=== PATIENT | female | born 1970 | race Caucasian/White ===

== ENCOUNTER 2018-02-27 11:39 | Outpatient (REF) | payer BC, SELFPAY ==
--- NOTE | 2018-02-27 11:20 | PAPFT_PTH ---
PATIENT: Masha Munoz LOC: [facility] U#:[id number] AGE/SX: 47/F ROOM: RE02/27/[address]: Kassi Yoo : 1970 BED: DIS: 02/27/2018 SPEC #: [id number] RECD: 02/27/18 13:01 STATUS: ALTAGRACIA RELori #: [id number] MARIA SUBM DR: Kassi Yoo DEPT: [facility] Cytology RECD BY: Caroline Antoine ENTERED: 02/27/18 13:02 SP TYPE: PAPFT DARRENHR DR: Ashlee Bruner Tissues: 1 - CX/ENDOCX FOR PAP SMEARS Procedures: PAP THIN PREP/UVM Screening HPV DNA PROBE Comments: [id number]
== END 2018-02-27 11:59 ==
LOC: LBN 11:39
PROVIDERS: PCP Nurse Practitioner Family; Visit Provider Obstetrics & Gynecology Gynecology
DX: Z12.4 Encounter for screening for malignant neoplasm of cervix (principal); Z11.51 Encounter for screening for human papillomavirus (HPV)
CPT/HCPCS: 88142; 87624

== ENCOUNTER 2018-02-27 12:11 | Outpatient (CLI) | payer BC, SELFPAY ==
[2018-02-27 13:57] LABS: Cholesterol 130 mg/dL (50-200); Glucose 94 mg/dL (70-100); HDL Cholesterol 48 mg/dL (40-60); LDL CHOLESTEROL 73 mg/dL (<100); Triglyceride 53 mg/dL (30-150)
[2018-02-27 14:12] LABS: Hemoglobin A1C 5.2 % (4.5-6.2)
== END 2018-02-27 12:31 ==
PROVIDERS: PCP Nurse Practitioner Family; Visit Provider Obstetrics & Gynecology Gynecology
DX: Z00.00 Encounter for general adult medical examination without abnormal findings (principal); Z13.1 Encounter for screening for diabetes mellitus; Z13.220 Encounter for screening for lipoid disorders
CPT/HCPCS: 36415; 80061; 82947; 83721; 83036

== ENCOUNTER 2019-04-22 02:21 | Outpatient (CLI) | payer OTHER, SELFPAY ==
--- NOTE | 2019-04-22 08:57 | PFT_ITS ---
PULMONARY FUNCTION TEST REPORT DATE OF SERVICE: April 22, 2019 REQUESTING PROVIDER: Nahed Reed M.D. Spirometry shows no evidence of obstructive airways disease. No bronchodilator testing was carried out. Lung volumes show no evidence of restriction. Diffusion capacity normal. Airways resistance normal. IMPRESSION: Normal pulmonary function study. No bronchodilator testing was carried out. Clinical correlation recommended. GINA/stephanie D/
[2019-04-22] MEDS: Inhaler, Assist Device 1 EACH MC (14:59)
[2019-04-22] MEDS: Methacholine 100 MG VIAL IH (14:59)
[2019-04-22] MEDS: Albuterol HFA 18 GM 200 PUFF INH IH (15:00)
== END 2019-04-22 02:41 ==
PROVIDERS: PCP Nurse Practitioner Family; Visit Provider Family Medicine
DX: R06.02 Shortness of breath (principal); R07.9 Chest pain, unspecified
CPT/HCPCS: 94060; 94150; 94726; 94729; 95070; 94010; J7674

== ENCOUNTER 2019-06-04 08:11 | Day surgery (SDC) | payer OTHER, SELFPAY ==
[2019-06-04 08:21] VITALS: BP 114/80; PULSE 61; RESP 16; TEMP 36.4; O2SAT 98
[2019-06-04] MEDS: Lactated Ringers 1,000 ML 80 ML IV (08:45)
--- NOTE | 2019-06-04 09:39 | W.COLOREPORT ---
Date of service: 06/04/19 Time of Service: 09:39 Colonoscopy Report Date of procedure: 06/04/19 Pre-op diagnosis general: hx of polyps Post-op diagnosis procedure note: same Procedure: CE and polypectomy- cold Surgeon: Shreya Cruz Anesthesia proc note operative: GETA Estimated blood loss (mL): 1 Pathology: other Complications: None Disposition: same day Prep: Miralax/Dulcolax Retraction Time: 10 mins Procedure Description: After informed consent was obtained the patient was taken to the procedure room and placed in a left decubitous position. Monitors were applied and a time out was done. The patients name, date of , procedure, allergies to medications and metal in their body was reviewed. The patient was then sedated. Once sedated and comfortable a rectal exam was done. External exam was normal- minimal residual tags. Erythema from prepping. Internal exam revealed a normal sphincter tone and no palpable masses. The scope was then introduced and retrofelexed. No internal hemorrhoids were identified. The scope was then advanced to the cecum w/out difficulty. The TI and appendiceal orifice were identified. The prep was good. The scope was then slowly retracted over 10 minutes back into the rectum. Polyps were removed at 40c,/sigmoid and rectum and removed w/ a cold biter. No AVM's or diverticula. The scope was removed and the patient was woken up and taken back to Same day surgery in stable condition. The patient tolerated the procedure well and there were no immediate complications. Follow up: The patient should follow up in 5-10 yrs- path pd years unless they develop changes in bowel habits or other new gastrointestinal complaints.
--- NOTE | 2019-06-04 10:12 | BOWEL_PTH ---
PATIENT: Masha Munoz LOC: [facility] U#:[id number] AGE/SX: 48/F ROOM: RE06/04/[address]: Shreya Cruz : 1970 BED: DIS: 06/04/2019 SPEC #: [id number] RECD: 06/04/19 12:36 STATUS: ALTAGRACIA REQ #: [id number] MARIA SUBM DR: Shreya Cruz DEPT: Surgical Specimen RECD BY: Caroline Antoine ENTERED: 06/04/19 12:37 SP TYPE: Bowel OTHR DR: Ashlee Bruner Tissues: 1 - BIOPSY BOWEL 2 - BIOPSY BOWEL Procedures: GROSS AND MICRO LEVEL 4 Comments: [id number]
--- NOTE | 2019-06-04 10:25 | W.PM.DSUDISC ---
Discharge Plan Disposition Patient Disposition: HOME Condition: Good Discharge Details Reason For Visit: SCREENING Attending Provider: Shreya Cruz Primary Care Provider: Ashlee Bruner Home Meds and New Rx's Prescriptions: No Action Daily Multiple 1 EACH tablet 1 tab-cap PO DAILY RF: 0 levothyroxine 50 mcg tablet 50 mcg PO DAILY Qty: 60 RF: 6 Discharge Instructions Additional Instructions: Findings: x2 small polyps. Will send a letter in 2-3 weeks as to the type of polyps and when to repeat scope Follow up: pending path report Please call if you develop: fevers >101.5 Nausea or Vomiting Abdominal pain that is not transient DAY SURGERY UNIT POST COLONOSCOPY INSTRUCTIONS 1. Because there will be medication in your system for the next 24 hours, you may feel a little sleepy. Your coordination will be affected. Therefore: a. Do not drive or operate dangerous equipment for 24 hours. b. Do not drink alcohol beverages for 24 hours (not even beer). c. Plan to go home and rest for the day. 2. Generally there are no restrictions on your activity after a day or so has gone by, but you may feel a bit fatigued for a few days. 3 After you arrive home you may have a light meal and return to a normal diet as you can tolerate it without feeling sick to your stomach. 4. After surgery, you may feel pain or discomfort. This should be only transient, but if it persists please contact your doctor. 5. If there are any questions regarding the findings of your procedure, please feel free to contact your doctor. 6. If you are unable to contact your doctor with a problem, contact the hospital at [phone]. 7. Continue all your regular medications unless directed otherwise. I understand the above instructions and have no questions. Signature of Patient or Responsible Adult Escort Date/Time Name of Responsible Adult Escort Signature of Nurse Date/Time Activity:: no lifting over 20 #'s or strenuous activity x24 hrs Diet:: small light meals x 24 hrs Discharge Orders Discharge Orders: Discharge Order (Routine); Ordered 06/04/19 Ordered By: Shreya Cruz DS: Diagnosis Discharge Diagnosis (1) Colorectal polyps: Status: Acute
[2019-06-04 10:54] VITALS: BP 128/84; PULSE 53; RESP 16; TEMP 36.3; O2SAT 99
== END 2019-06-04 11:12 | disposition home or self-care (01) ==
PROVIDERS: PCP Nurse Practitioner Family; Visit Provider Surgery
PROC: 0DJD8ZZ Inspection of Lower Intestinal Tract, Via Natural or Artificial Opening Endoscopic (ICD-10-PCS; CPT 45378; principal; 2019-06-04 09:00)
DX: Z12.11 Encounter for screening for malignant neoplasm of colon (principal); K63.5 Polyp of colon; K62.1 Rectal polyp
CPT/HCPCS: 45380; 88305; J2001

== ENCOUNTER 2019-08-27 02:48 | Outpatient (CLI) | payer OTHER, SELFPAY ==
--- NOTE | 2019-08-27 13:19 | DI.MAMMO_ITS ---
EXAM: MAMMO SCREENING CLINICAL HISTORY: screening,Z12.39 TECHNIQUE: Mammograms were interpreted according to the usual protocol including computer analysis w [employer] CAD system, tomosynthesis and C-view imaging. COMPARISON: 2017 FINDINGS: The breasts are composed of heterogeneously dense fibroglandular densities, Breast Density category C . No suspicious masses or suspicious microcalcifications are seen. No skin thickening or abnormal axillary lymph nodes are seen. There has been no significant change from prior exams. IMPRESSION: BI-RADS Category 1: Negative mammogram. Yearly screening mammography is recommended. Breast density category C, heterogeneously dense tissue which decreases the sensitivity of the mammog ralph. The mammogram demonstrates the patient's breast tissue is dense. Dense breast tissue is very common a nd is not abnormal but dense breast tissue can make it harder to find cancer on a mammogram. Also, de nse breast tissue may increase breast cancer risk. This information about the result of the mammogram report was provided to the patient to raise their awareness. Use this report when you speak with the patient about their risks for breast cancer, which includes their family history. At that time, you may recommend additional screening tests (Ultrasound or MRI) as they might be useful based on their r isk. A negative radiographic report should not delay biopsy if a dominant or clinically suspicious mass is present. Up to ten percent of cancers are not identified on mammography. A negative report may reinforce clinical impression. Adenosis and dense breasts may obscure an underlying neoplasm. False positive reports average 6 to 10%.
== END 2019-08-27 03:08 ==
PROVIDERS: PCP Nurse Practitioner Family; Visit Provider Obstetrics & Gynecology Gynecology
DX: Z12.31 Encounter for screening mammogram for malignant neoplasm of breast (principal)
CPT/HCPCS: 77063; 77067

== ENCOUNTER 2020-01-21 10:21 | Outpatient (CLI) | payer OTHER, SELFPAY ==
--- NOTE | 2020-01-21 09:45 | DI.RAD_ITS ---
EXAM: XR KNEE RT 3V AP,LAT,HASEEB INDICATION: TKA preop. COMPARISON: CR XR STANDING ALIGNMENT from 01/21/2020 TECHNIQUE: 2D digital imaging was performed. FINDINGS: No prior comparison exams available. There is moderate to severe narrowing of the medial femoral tibial joint space of the right knee, per iarticular sclerosis and spurring. There has been a previous ACL repair. There is varus angulation at the right knee. Degenerative changes are also seen at the patellofemoral joint, greater medially. The patellofemoral joint space is well maintained. The left knee and bilateral hips and ankles are unremarkable. There is a overall leg length discrepa ncy at the level of the femoral heads of approximately 1 cm, with the left femoral head projecting merchant perior to the right. IMPRESSION: Severe degenerative changes of the medial femoral tibial joint space of the right knee. 1 cm leg le ngth discrepancy. DATA REPOSITORY: RADIATION DOSE DELIVERED:
== END 2020-01-21 10:41 ==
PROVIDERS: PCP Nurse Practitioner Family; Referring Provider Nurse Practitioner Family; Visit Provider Physician Assistant Surgical
DX: M17.11 Unilateral primary osteoarthritis, right knee (principal); M21.751 Unequal limb length (acquired), right femur
CPT/HCPCS: 73562; 77073

== ENCOUNTER 2020-02-12 01:23 | Outpatient (CLI) | payer OTHER, SELFPAY ==
[2020-02-14 09:59] LABS: SARS-CoV-2 RNA Not Detected (NotDetected); SARS-CoV-2 RNA Source Nasal/Nares
== END 2020-02-12 01:43 ==
PROVIDERS: PCP Nurse Practitioner Family; Visit Provider Student in an Organized Health Care Education/Training Program
DX: Z11.59 Encounter for screening for other viral diseases (principal); Z01.818 Encounter for other preprocedural examination
CPT/HCPCS: U0003

== ENCOUNTER 2020-02-12 01:26 | Outpatient (CLI) | payer OTHER, SELFPAY ==
[2020-02-12 10:51] LABS: HCT 38.7 % (36.0-46.0); HGB 13.1 g/dL (11.2-15.7); MCH 32.4 pg (27.0-33.0); MCHC 33.9 % (32.0-36.0); MCV 95.8 fL (80-95); MPV 10.5 fL (8.0-11.0); Platelet Count 225 10^3/uL (130-400); RBC 4.04 10^6/uL (3.93-5.22); RDW 12.9 % (11.7-14.6); RDW-SD 45.9 fL; WBC 4.61 10^3/uL (4.4-10.8)
[2020-02-12 12:20] LABS: Anion Gap 7.4 mmol/L (3-11); BUN 15 mg/dL (7-18); CO2 29.6 mmol/L (21.0-32.0); CREATININE 0.75 mg/dL (0.55-1.02); Calcium 9.6 mg/dL (8.5-10.1); Chloride 104 mmol/L (98-107); Glucose 87 mg/dL (74-106); Potassium 4.7 mmol/L (3.5-5.1); Sodium 141 mmol/L (136-145)
== END 2020-02-12 01:46 ==
PROVIDERS: PCP Nurse Practitioner Family; Visit Provider Student in an Organized Health Care Education/Training Program
DX: M25.561 Pain in right knee (principal); M17.11 Unilateral primary osteoarthritis, right knee; Z01.812 Encounter for preprocedural laboratory examination
CPT/HCPCS: 36415; 80048; 85027

== ENCOUNTER 2020-02-16 07:32 | Observation (INO) | payer OTHER, SELFPAY ==
[2020-02-16] VITALS (10 sets, daily range): BP systolic 83–129; BP diastolic 42–89; PULSE 44–66; RESP 12–24; TEMP 36.1–36.4; O2SAT 92–100
--- NOTE | 2020-02-16 07:34 | DSE_ITS ---
Documented by User: Shreya Rubioxon 02/16/20 07:40 DS: Diagnosis Discharge Diagnosis (1) Osteoarthritis of right knee: Status: Chronic Discharge Plan Disposition Patient Disposition: HOME Condition: Good Discharge Details Reason For Visit: R KNEE DJD Admit Date/Time: 02/16/20 08:04 Admit Provider: Asaf Ervin Attending Provider: Asaf Ervin Primary Care Provider: Ashlee Bruner [facility] Course Hospital Course: Patient was admitted to the day surgery unit following the procedure. The surgery was tolerated well without any notable medical, surgical, or anesthetic complications. Mobilization began post-operatively. They were voiding spontaneously. Vitals were stable. Physical therapy worked with the patient and was cleared for discharge home. No acute medical issues. Pain was controlled on oral regimen. Home Meds and New Rx's Prescriptions: New acetaminophen 500 mg tablet 500 mg PO Q6H PRN (Reason: pain) Qty: 60 RF: 2 aspirin 81 mg tablet,delayed release (DR/EC) 81 mg PO BID 30 Days Qty: 60 RF: 0 celecoxib [Celebrex] 200 mg capsule 200 mg PO BID Qty: 60 RF: 0 oxycodone 5 mg tablet 2.5 - 5 mg PO Q4H PRN (Reason: severe post-operative pain) Qty: 18 RF: 0 Continued Daily Multiple 1 EACH tablet 1 tab-cap PO DAILY RF: 0 levothyroxine 50 mcg tablet 50 mcg PO DAILY Qty: 60 RF: 6 Discharge Instructions Additional Instructions: Total Knee Discharge Instructions Activity: The most important activity is to walk. You should try to take short walks a few times a day. It is important that when resting you work on keeping the knee straight. Avoid putting a pillow behind the knee as this will encourage flexion. Work on range of motion exercises as provided by Physical Therapy. - Start outpatient physical therapy within 2 weeks. - You should wear the SHIV hose on both legs for 2 weeks. Dressing: Keep the surgical dressing in place for at least one week. After the first week it may be removed and replace with light gauze and tape or nothing. It may get wet after 3 days but avoid soaking the dressing. If it gets wet, just lightly pat dry. Medications: - You should take Tylenol and anti-inflammatory Celebrex as your primary pain control medications. If the Celebrex is too expensive or not covered, please call the office for another alternative (Advil/Ibuprofen or Naproxen/Aleve) - You have been prescribed a stronger pain medication Oxycodone for breakthrough pain, take as needed as prescribed. - You have also been prescribed a stomach acid reduction agent Pantoprozole to help reduce stomach acid and reflux. - You will be taking Aspirin 81mg twice a day for DVT prevention unless instructed otherwise. - If you have constipation you should take Colace (which was prescribed) or Miralax (which you may purchase [id number]). It takes most people 3-4 days to have a bowel movement. Follow-up: 2 weeks If you have any acute concerns or questions, please do not hesitate to contact the office at [phone]. You may contact Dr. Ervin with any questions after hours through the hospital at [phone] or on his cell phone at [phone]. Referrals: Asaf Ervin MD [ [facility] STAFF PHYSICIAN] - Activity:: Activity as Tolerated Equipment/Supplies:: Walker Diet:: As Tolerated Discharge Orders Discharge Orders: Discharge Order (Routine); Ordered 02/16/20 Ordered By: Asaf Ervin DS: Data Vitals/I&O Vitals and I&O: Vital Signs Respiratory Depth Normal 02/15/20 10:34 Intake & Output 02/15/20 02/15/20 02/16/20 11:59 23:59 11:59 Weight 77.564 kg [facility] Medical History Colorectal polyps Hypothyroidism (acquired) Intramural leiomyoma of uterus (06/07/16) x4; largest [id number] Menopausal symptoms (02/04/17) Occasional Vasomotor symptoms. Vaginal dryness treated with [id number] vaginal lubricant. Surgical History History of section x2 History of endometrial ablation Hx of anterior cruciate ligament surgery R replacement Family History Other Diabetes Thyroid disease Social History Smoking/Tobacco Use Status: Never Second Hand Exposure: No Smoking risk assessment performed?: Yes Alcohol Intake: current Alcohol Intake frequency: 0-2 drinks per day Alcohol type: beer and wine Drug use: Never Substance use type: does not use Household members: spouse Number of Children: 2 current occupation: [employer]. Now works at [employer] Sexually active: Yes Current gender identity: female Seatbelt use: always Do you feel safe at home: Yes Do you feel safe in your relationship?: Yes Additional Social history: 03/2019. 2 daughters: Yohana 29yo, Giulia 22yo Female Reproductive History Menstrual Duration of menses: 6-7 days (Infrequent menses. Dysmenorrhea) control method: none History History 2 Para Hx # Term Pregnancies 2 Multiple births Hx # Pregnancies Ectopic pregnancies AB induced Hx Number of Living Children AB spontaneous Documented by User: Asaf Ervin MD 02/16/20 15:35 Date of service: 02/16/20 Time of Service: 15:31 Discharge Plan Disposition Patient Disposition: HOME Condition: Good Discharge Details Reason For Visit: R KNEE DJD Admit Date/Time: 02/16/20 08:04 Admit Provider: Asaf Ervin Attending Provider: Asaf Ervin Primary Care Provider: Ashlee Bruner Hospital Course Hospital Course: Patient was admitted to the day surgery unit following the procedure. The surgery was tolerated well without any notable medical, surgical, or anesthetic complications. Mobilization began post-operatively. They were voiding spontaneously. Vitals were stable. Physical therapy worked with the patient and was cleared for discharge home. No acute medical issues. Pain was controlled on oral regimen. Home Meds and New Rx's Prescriptions: New acetaminophen 500 mg tablet 500 mg PO Q6H PRN (Reason: pain) Qty: 60 RF: 2 aspirin 81 mg tablet,delayed release (DR/EC) 81 mg PO BID 30 Days Qty: 60 RF: 0 celecoxib [Celebrex] 200 mg capsule 200 mg PO BID Qty: 60 RF: 0 oxycodone 5 mg tablet 2.5 - 5 mg PO Q4H PRN (Reason: severe post-operative pain) Qty: 18 RF: 0 Continued Daily Multiple 1 EACH tablet 1 tab-cap PO DAILY RF: 0 levothyroxine 50 mcg tablet 50 mcg PO DAILY Qty: 60 RF: 6 Discharge Instructions Additional Instructions: Total Knee Discharge Instructions Activity: The most important activity is to walk. You should try to take short walks a few times a day. It is important that when resting you work on keeping the knee straight. Avoid putting a pillow behind the knee as this will encourage flexion. Work on range of motion exercises as provided by Physical Therapy. - Start outpatient physical therapy within 2 weeks. - You should wear the SHIV hose on both legs for 2 weeks. Dressing: Keep the surgical dressing in place for at least one week. After the first week it may be removed and replace with light gauze and tape or nothing. It may get wet after 3 days but avoid soaking the dressing. If it gets wet, just lightly pat dry. Medications: - You should take Tylenol and anti-inflammatory Celebrex as your primary pain control medications. If the Celebrex is too expensive or not covered, please call the office for another alternative (Advil/Ibuprofen or Naproxen/Aleve) - You have been prescribed a stronger pain medication Oxycodone for breakthrough pain, take as needed as prescribed. - You have also been prescribed a stomach acid reduction agent Pantoprozole to help reduce stomach acid and reflux. - You will be taking Aspirin 81mg twice a day for DVT prevention unless instr ucted otherwise. - If you have constipation you should take Colace (which was prescribed) or Miralax (which you may purchase [id number]). It takes most people 3-4 days to have a bowel movement. Follow-up: 2 weeks If you have any acute concerns or questions, please do not hesitate to contact the office at [phone]. You may contact Dr. Ervin with any questions after hours through the hospital at [phone] or on his cell phone at [phone]. Referrals: Asaf Ervin MD [ [facility] STAFF PHYSICIAN] - Activity:: Activity as Tolerated Equipment/Supplies:: Walker Diet:: As Tolerated Discharge Orders Discharge Orders: Discharge Order (Routine); Ordered 02/16/20 Ordered By: Asaf Ervin DS: Summary Status at Discharge Functional status at discharge: uses cane/walker Overall status at discharge: patient is progressing back to baseline Mental Status: mental status grossly normal Speech and Movement: speech and movement normal Mood: congruent mood Affect: normal affect Exam Psych Mental Status: mental status grossly normal Speech and Movement: speech and movement normal Mood: congruent mood Affect: normal affect [facility] Medical History Colorectal polyps Hypothyroidism (acquired) Intramural leiomyoma of uterus (06/07/16) x4; largest [id number] Menopausal symptoms (02/04/17) Occasional Vasomotor symptoms. Vaginal dryness treated with zsum-tzy-izgrtld vaginal lubricant. Surgical History History of section x2 History of endometrial ablation Hx of anterior cruciate ligament surgery R replacement Family History Other Diabetes Thyroid disease Social History Smoking/Tobacco Use Status: Never Second Hand Exposure: No Smoking risk assessment performed?: Yes Alcohol Intake: current Alcohol Intake frequency: 0-2 drinks per day Alcohol type: beer and wine Drug use: Never Substance use type: does not use Household members: spouse Number of Children: 2 current occupation: [employer]. Now works at [employer] Sexually active: Yes Current gender identity: female Seatbelt use: always Do you feel safe at home: Yes Do you feel safe in your relationship?: Yes Additional Social history: 03/2019. 2 daughters: Yohana 29yo, Giulia 22yo History History 2 Para Hx # Term Pregnancies 2 Multiple births Hx # Pregnancies Ectopic pregnancies AB induced Hx Number of Living Children AB spontaneous
[2020-02-16] MEDS: Gabapentin 300 MG CAP PO (08:45)
[2020-02-16] MEDS: Acetaminophen 500 MG TAB 1000 MG PO ×2 (08:45→15:42)
[2020-02-16] MEDS: Celecoxib 200 MG CAP 400 MG PO (08:46)
[2020-02-16] MEDS: Lactated Ringers 1,000 ML 80 ML IV ×2 (08:55→13:40)
[2020-02-16] MEDS: ceFAZolin 2 GM/50 ML BAG IVPB (10:23)
[2020-02-16] MEDS: Ketorolac 30 MG/ML VIAL (10:53)
[2020-02-16] MEDS: Bupivacaine 0.25% Pres-Free 30 ML VIAL (10:53)
[2020-02-16] MEDS: Normal Saline 20 ML VIAL (10:54)
[2020-02-16] MEDS: fentaNYL 100 MCG/2 ML VIAL IVP ×2 (12:20→12:47)
[2020-02-16] MEDS: HYDROmorphone 2 MG/ML VIAL 0.5 MG IVP (13:38)
[2020-02-16] MEDS: Normal Saline Flush 10 ML SYR IV (13:39)
[2020-02-16] MEDS: ceFAZolin 1 GM/50 ML BAG IVPB (13:40)
--- NOTE | 2020-02-16 14:41 | IN_ITS ---
Date of service: 02/16/20 Time of Service: 14:41 PT Notes Visit Reasons: R KNEE DJD Physical Therapy Inpatient Initial Evaluation Date: 02/16/2020 Referring Doctor: MAR Hart PT Orders: PT CONSULT: Status post Ortho surgery Precautions: Fall. Standard. Patient Profile/Admitting Diagnosis: Masha is a 49-year-old female with degenerative joint disease of the right knee and is status post right total knee arthroplasty on postop day 0. PMHX: Medical History (Updated 02/09/20 @ 13:04 by Shreya Quick) Colorectal polyps Hypothyroidism (acquired) Intramural leiomyoma of uterus (06/07/16) x4; largest [id number] Menopausal symptoms (02/04/17) Occasional Vasomotor symptoms. Vaginal dryness treated with [id number] vaginal lubricant. Surgical History History of section x2 History of endometrial ablation Hx of anterior cruciate ligament surgery R replacement Social History/Home Situation: Lives with in a private home with 4 steps to enter and bilateral rails that are far apart. Independent with all aspects of ADLs prior to surgery. No falls in the past 12 months. Equipment Owned/DME: Bilateral axillary crutches Subjective: Agreeable to PT consult. Reports pain in the right knee at 4?5/10. Complained of hot flashes during stair ascent but was able to complete descent after about 5 minutes of seated rest on the step. Objective: General Observation: CAYLA wraps to right LE. Cryocuff to right knee. Mental Status: Alert and oriented X 4 Pain: 4?5/10 in the right knee ROM: Right Upper Extremity: Shoulder Flexion WFL. Shoulder abduction WFL. Elbow flexion WFL. Wrist flexion WFL. Opening and closing of hand WFL. Left Upper Extremity: Shoulder Flexion WFL. Shoulder abduction WFL. Elbow flexion WFL. Wrist flexion WFL. Opening and closing of hand WFL. Right Lower Extremity: Hip flexion WFL. Hip abduction WFL. Knee flexion allows about 10 degrees to 90 degrees. Knee extension -10 degrees. Ankle dorsiflexion WFL. Ankle plantarflexion WFL. Left Lower Extremity: Hip flexion WFL. Hip abduction WFL. Knee flexion WFL. Ankle dorsiflexion WFL. Ankle plantarflexion WFL. Strength: Right Upper Extremity: Shoulder flexors 5/5. Shoulder abductors 5/5. Elbow flexors 5/5. Elbow extensors 5/5. Occasional Caregiver strong. Left Upper Extremity: Shoulder flexors 5/5. Shoulder abductors 5/5. Elbow flexors 5/5. Elbow extensors 5/5. Occasional Caregiver strong. Right Lower Extremity: Hip flexors 4/5. Hip abductors 4/5. Knee flexors 3-/5. Knee extensors 3-/5. Ankle dorsiflexors 5/5. Ankle plantarflexors 5/5. Left Lower Extremity:Hip flexors 5/5. Hip abductors 5/5. Knee flexors 5/5. Knee extensors 5/5. Ankle dorsiflexors 5/5. Ankle plantarflexors 5/5. Sensation: Numb on bilateral gluteal areas. Intact as to pain and pressure on bilateral lower extremities. Bed Mobility/Transfers: Rolling supervision Supine to sit supervision Sit to supine supervision Sit to stand contact-guard assist Stand to sit contact-guard assist Bed to chair contact-guard assist Chair to bed contact-guard assist Gait: 50 feet using bilateral axillary crutches with contact-guard assist using 3-point gait pattern. Up and down 8 x 4-inch steps using contact guard assist with step over step pattern while using one rail and crutch on the other side. Masha had a an episode of hot flashes, her lips turned pale, and requested to sit down. She was instructed to sit down on the steps safely to rest and nurse placed a cold pack to her posterior neck and a cold wash cloth on her forehead. After about 5 minutes, patient was able to complete stair descent using same AD and rail. THERA EX: Education and instruction on seated exercise performance consisting of bilateral quadriceps setting, bilateral gluteal setting, and ankle DF/PF exercises to be done every hour x 10-15 reps. Balance: Static Sitting: Normal Dynamic Sitting: Normal Static Standing: Fair Dynamic Standing: Fair Special Tests: Mobility Limitations Standardized Measure [facility] AM-PAC 6 clicks Basic Mobility Inpatient Short Form: Raw Score: 20 CMS Score: 36% deficit Informed Consent/Education: Patient instructed in purpose of PT consult and plan of care. Assessment: Masha demonstrates functional mobility decline requiring the use of bilateral axillary crutches for all mobility ADL performance, difficulty with walking, balance impairment, and increased risk for falls due to postoperative status. She will benefit from outpatient physical therapy services 2 weeks postop in order to facilitate return to premorbid independent level. Patient presents with clinical signs and symptoms consistent with current/admitting diagnoses that have resulted to mobility limitations, gait instability, generalized weakness, and impairment of motor control as demonstrated by the following impairment level findings: 1. Decreased strength to right knee major muscle groups 2. Impaired standing balance 3. Impaired activity tolerance 4. Limitation of joint range of motion in right knee Impairments are contributing to the following functional limitations: 1. Inability to safely ambulate without assistive device 2. Increase completion time for mobility ADL performance 3. Increased fall risk 4. Inability to negotiate steps alone safely Patient is assessed as a [id number] moderate complexity based on the following: History: 49-year-old female with impairment level findings, functional limitations, and past medical history as indicated above Examination: Demonstrable impairment in strength, balance, and mobility level with underlying impairments and functional limitations as documented above Presentation:Evolving Decision Makin moderate complexity Goals: N/A. PT eval and 1 treatment session only for education and training on the use of bilateral axillary crutches for all mobility ADL performance including stair negotiation technique and on seated home exercise program. Plan of Care/Treatment Plan: N/A. PT eval and 1 treatment session only. DISCHARGE RECOMMENDATIONS: Home when medically cleared by orthopedic surgeon. Outpatient PT services in 2 weeks to facilitate return to premorbid independent level. TREATMENT CODE/TIME: 38462 x 25 minutes, 01508 x 17 minutes beginning at 14:41 PM. Thank you for the opportunity to participate in the care of this patient. Latricia Ospina PT, DPT, CLT [facility] [place], [place]
--- NOTE | 2020-02-16 18:53 | W.PM.OP ---
Date of service: 02/16/20 Time of Service: 12:02 Operative Note Operative Note DATE OF PROCEDURE: 02/16/20 PRE-OP DIAGNOSIS: Right Knee Osteoarthritis POST-OP DIAGNOSIS: same PROCEDURE: Right Total Knee Replacement SURGEON: Asaf Ervin POLYSOMNOGRAPHIC TECH: Shreya Quick ANESTHESIA: regional and spinal ESTIMATED BLOOD LOSS: 200 PATHOLOGY: none sent TOURNIQUET TIME: 0 COMPLICATIONS: None Patient was transported to: PACU Patient's condition: stable Implants: 1. Depuy Attune Cementless Cruciate Retaining Femoral Component, Size 6 2. Depuy Attune Cementless Rotating Platform Tibial Component, Size 5 3. Depuy Attune 6 x 5 mm CR/RP Poly 4. Depuy Attune Patellar Component, Size 35 Indications: I have seen Masha in clinic for symptoms of knee arthritis, confirmed with radiographic findings. She has exhausted nonoperative methods and was having significant limitations in daily function and desired better function and less pain. I discussed the technical details of a knee replacement. I explained the risks of the procedure to include, but not limited to, bleeding, infection, pain, stiffness, fracture, damage to nerves and vessels, damage to muscles and tendons, loosening, need for repeat procedure, blood clot and cardiopulmonary demise. Despite these risks, aMsha elected to proceed. Findings: There was significant signs of arthritis throughout the knee with notable tibial varus but also disease processes in the lateral femur and patellofemoral joint. Procedure Description: Masha was greeted in the preoperative holding area where the correct side was identified and marked. The consent was reviewed with the patient and signed. The history and physical was updated. All questions were answered. Preoperative medications were administered: Acetaminophen 1000mg, Celebrex 400mg, and Gabapentin 300mg. An adductor canal block was then administered by the anesthesia team in the PACU. She was taken back to the operating room. A spinal anesthestic was then administered. The patient was placed into the supine position on the operating room table. A nonsterile tourniquet was placed high onto the leg but only used for cementing. Posts were placed for positioning during the procedure. All bony prominences were well padded. Prophylactic antibiotics in the form of cefazolin were administered. 1g of Tranxemic Acid was given intravenously within 30 minutes of incision. The right leg was then prepped with Chloraprep and draped in a standard fashion with impervious stockinette. A second prep with Chloraprep was performed prior to application of Iodine impregnated skin protection. A timeout to confirm correct identity, side and site, procedure, allergies, anesthesia, and medical concerns was performed. With the knee in some flexion, a midline incision was made overlying the knee. Full thickness skin flaps were raised once the extensor mechanism was encountered. These were raised medially and laterally. Any bleeding was controlled with electrocautery. Once the extensor mechanism was fully exposed, a medial parapatellar arthrotomy was performed in a flexed position. All bleeding from the arthrotomy and the geniculate arteries was coagulated. A medial subperiosteal peel was performed with electrocautery to the midcoronal plane. Due to the significant varus deformity the entire medial tibial plateau was exposed. The fat pad was removed while keeping the patellar tendon protected. The anterior distal femur synovium was removed for later visualization. The ACL and PCL were resected and the anterior horn of the lateral meniscus was transected. The knee was then flexed with the patella everted. Large osteophytes from the tibia were removed. Large osteophytes from the femur were removed. Using a step drill, and based on preoperative templating, the femoral canal was entered. This was done with a step drill without any difficulty. The intramedullary distal femoral cut guide was inserted, set to a 5 degree valgus cut and 9 mm cut thickness. There was some hypoplasia of the lateral femoral condyle and any remnant cartilage of the medial femoral condyle was removed for appropriate thickness. The distal femoral cut guide was then held in position and pinned. With the soft tissues protected, the distal cut was performed. This was passed over a few times to ensure a planar cut. I then turned attention to the tibia. The extramedullary guide was placed onto the leg. The distal aspect was slid medial to adjust for position of center of ankle and stay in line with shaft of the tibia. Approximately 3-5 degrees of posterior slope was kept in the proximal cutting guide. The center of the guide was aligned with the PCL. The stylus was used to assess cut thickness. The medial side, most involved side, was set for a 2mm cut. This was then held in position and pinned into place with 2 additional pins and a cross pin for stability. The medial and lateral collateral ligaments were protected and the cut was performed. With this completed, it was assessed and noted to be of appropriate dimensions. The guide was removed. A spacer block was inserted and the knee was brought into extension. The 5mm spacer block provided full extension, without hyperextension and with stability of both the medial and lateral collateral ligaments was assessed. The pins from the femur and the tibia were then removed. The distal femur was then sized. The anterior stylus was placed onto the lateral ridge of the anterior femur. This indicated a size 6 femur. The external rotation of the guide was adjusted to 3 degrees to match the epicondylar axis, perpendicular to [place]?s line. The 4-in-1 cutting guide was the placed. The posterior medial femur cut was evaluated and appeared of good thickness. The spacer block was inserted underneath the cutting guide and stability was confirmed in 90 degrees of flexion. An diego wing was used to confirm appropriate position of the anterior cut to avoid notching. This cutting guide was ensured to be flush on the cut surface and then pinned into place with headed pins. While protecting the soft tissues, quad tendon, and collateral ligaments, the anterior and posterior cuts were performed with a saw. The central two pins were removed and the posterior and anterior chamfers were cut next. The notch-cutting guide was placed. This was pinned to lateralize the femoral component as much as possible while keeping it flush on the cut surface. This was then pinned into position. A reciprocating saw was used to make the notch cut. A rasp smoothed the cut surfaces. The medial and lateral menisci were removed. A trial femoral component was then inserted, impacted down to the cut surfaces, and the lug holes were drilled. A provisional trial tibial component was placed and the knee was brought through range of motion. There was noted to be excellent extension and flexion. There was no significant instability. The patella was tracking without thumbs. A size 5mm polyethylene component provided the best range of motion and stability with less than 2mm gapping with medial and lateral stress and full extension without significant hyperextension. The tibial cut surface was fully exposed. The tibia was then sized as a 5. The tibia had been previously marked during trialing to correspond to the center of the tibial component to help with rotation. The trial was aligned to this bijan, approximately rotated to the medial 1/3rd of the tibial tubercle. The trial was pinned into place. The tibia was prepared with a reamer and a keel punch and lug holes. The knee was then brought into extension and the patella was measured as 25 mm. Using the patellar clamp and cut guide, this was resected to a flat surface with at least 13mm of thickness remaining. The size 35 patella fit the best. This was oriented and then clamped into position. The lugs were drilled. The trial components were removed. The final components were opened on the back table. The periosteal and capsular tissues, especially posteriorly, around the knee were then systematically injected with a periarticular cocktail consisting of 50cc 0.25% Marcaine, 30mg Ketorolac, 20cc of Exparal and 50cc of injectable saline. The knee was thoroughly irrigated with a pulse lavage and dried. Irrisept was also used to irrigate the tissues. On the back table, with the implants opened, the cement was mixed. One batche of high viscosity cement were prepared with vacuum assistance. After the cement was ready a small amount was placed on the cut surface of the patella and the patellar button was clamped into position and held. During this process attention was turned to the gutters of the knee and for all interfaces for any excess cement. While the cement was hardening, the cementless knee components were placed. Starting with the tibial component, the tibia was subluxed anteriorly and the lug holes of the component were lined up. The tibia was then impacted with an impactor and mallet until the tibial component was in contact with the tibia. The final polyethylene component was inserted. Then, the femoral component was inserted. The lug holes were aligned and the component was impacted into position. The knee was irrigated with Irrisept chlorhexadine solution. This was allowed to sit in the knee for 3 minutes. After the cement had finally cured, approximately 15min, the clamp was removed from the patella and the knee was taken through range of motion. The patella was tracking with a no-thumbs technique. The capsule was then reapproximated with a No. 1 Vicryl at multiple locations. The capsule was finally closed with a No. 2 Stratafix, barbed suture. The tourniquet was then released and the arthrotomy appeared watertight without significant bleeding. The second dosing of 1g TXA was started. Deep tissues were then reapproximated with 0 Vicryl and 2-0 Vicryl. The skin was closed with a running 3-0 Monocryl in a subcuticular fashion. This was reinforced with skin glue. A Mepilex silver dressing was applied along with a [id number] CAYLA wrap. A CryoCuff was applied. Masha was transferred to the hospital bed without difficulty an suffering no apparent complication. Masha has a good prognosis. Physical therapy will start today and without restrictions, weight-bearing as tolerated. Aspirin 81mg BID will be used for DVT prophylaxis.
== END 2020-02-16 17:38 | disposition home or self-care (01) ==
LOC: PDS 02-17 13:52
PROVIDERS: Admitting Provider Student in an Organized Health Care Education/Training Program; PCP Nurse Practitioner Family; Visit Provider Student in an Organized Health Care Education/Training Program
PROC: 0SRC0J9 Replacement of Right Knee Joint with Synthetic Substitute, Cemented, Open Approach (ICD-10-PCS; CPT 27447; principal; 2020-02-16 10:00)
DX: M17.11 Unilateral primary osteoarthritis, right knee (principal); M25.561 Pain in right knee; E03.9 Hypothyroidism, unspecified
CPT/HCPCS: 27447; C1776; 76942; 97162; 97530; NC; E0114; J0690; J1885; J2001; J2250; J2405; J3010

== ENCOUNTER 2020-03-03 10:43 | Outpatient (CLI) | payer OTHER, SELFPAY ==
--- NOTE | 2020-03-03 10:30 | DI.RAD_ITS ---
EXAM: XR KNEE RT 1V CLINICAL HISTORY: 1st post op R TKA. TECHNIQUE: 2D digital imaging was performed. COMPARISON: CR XR KNEE RT 3V AP,LAT,HASEEB from 01/21/2020 FINDINGS: There has been interval placement of a prosthesis. Components appear to be in satisfactory position on this single lateral view. No obvious loosening. There has been patellar resurfacing. IMPRESSION: Satisfactory appearance DATA REPOSITORY: RADIATION DOSE DELIVERED:
--- NOTE | 2020-03-03 10:30 | DI.RAD_ITS ---
EXAM: XR STANDING ALIGNMENT CLINICAL HISTORY: 1ST POST OP R TKA. TECHNIQUE: 2D digital imaging was performed. COMPARISON: CR XR STANDING ALIGNMENT from 01/21/2020 FINDINGS: There has been interval placement of a right knee prosthesis. This appears to be in satisfactory pos ition. No obvious fracture or loosening. Opposite-left knee appears unremarkable. Hips unremarkabl e. Ankles are unremarkable. No osseous lesions. IMPRESSION: Right knee prosthesis. Left knee appears unremarkable on this single view. DATA REPOSITORY: RADIATION DOSE DELIVERED:
== END 2020-03-03 11:03 ==
PROVIDERS: PCP Nurse Practitioner Family; Referring Provider Nurse Practitioner Family; Visit Provider Student in an Organized Health Care Education/Training Program
DX: Z96.651 Presence of right artificial knee joint (principal)
CPT/HCPCS: 73560; 77073

== ENCOUNTER 2020-11-24 15:55 | Outpatient (REF) | payer OTHER, SELFPAY ==
[2020-11-24 14:14] LABS: Abs Immature Grans 0.01 10^3/uL (0.0-0.06); Absolute Basophil Count 0.03 10^3/uL (0.0-0.2); Absolute Eosinophil Count 0.33 10^3/uL (0.0-0.7); Absolute Lymphocyte Count 1.22 10^3/uL (1.2-3.4); Absolute Monocyte Count 0.31 10^3/uL (0.1-0.8); Basophils % 0.7; Eosinophils % 8.2; HCT 37.3 % (36.0-46.0); HGB 12.4 g/dL (11.2-15.7); Immature Grans % 0.2; Lymphocytes % 30.4; MCH 32.1 pg (27.0-33.0); MCHC 33.2 % (32.0-36.0); MCV 96.6 fL (80-95); MPV 10.6 fL (8.0-11.0); Monocytes % 7.7; Neutrophils % 52.8; Nucleated RBC 0 %; Platelet Count 231 10^3/uL (130-400); RBC 3.86 10^6/uL (3.93-5.22); RDW-SD 46.5 fL; WBC 4.01 10^3/uL (4.4-10.8)
[2020-11-24 14:15] LABS: Absolute Neutrophil Count 2.12 10^3/uL (1.2-6.7)
[2020-11-24 14:27] LABS: Iron 125 ug/dL (50-170); Total Iron Binding Capacity 317 ug/dL (250-450); Transferrin Sat 39 % (15-50)
[2020-11-24 14:42] LABS: Anion Gap 9.2 mmol/L (3-11); BUN 15 mg/dL (7-18); CO2 26.8 mmol/L (21.0-32.0); CREATININE 0.7 mg/dL (0.55-1.02); Calcium 9.3 mg/dL (8.5-10.1); Chloride 106 mmol/L (98-107); Glucose 98 mg/dL (74-106); Potassium 4.4 mmol/L (3.5-5.1); Sodium 142 mmol/L (136-145); TSH (W/Ref FT4) 2.72 uIU/mL (0.36-3.74)
[2020-11-24 21:04] LABS: Magnesium 1.9 mg/dL (1.7-2.8)
== END 2020-11-24 15:56 | disposition home or self-care (01) ==
LOC: NCHCN 15:55
PROVIDERS: PCP Nurse Practitioner Family; Visit Provider Nurse Practitioner Family
DX: Z00.00 Encounter for general adult medical examination without abnormal findings (principal); G47.00 Insomnia, unspecified; G47.62 Sleep related leg cramps; R60.0 Localized edema; M25.561 Pain in right knee; R06.83 Snoring; R21 Rash and other nonspecific skin eruption; I80.9 Phlebitis and thrombophlebitis of unspecified site
CPT/HCPCS: 80048; 83540; 83550; 83735; 84443; 85025

== ENCOUNTER 2021-01-09 15:22 | Outpatient (CLI) | payer OTHER, SELFPAY ==
--- NOTE | 2021-01-09 15:00 | DI.RAD_ITS ---
Exam(s) XR KNEE RT 2V AP,LAT EXAM: XR KNEE RT 2V AP,LAT CLINICAL HISTORY: pain about R TKA TECHNIQUE: COMPARISON: CR XR KNEE RT 1V from 03/03/2020 FINDINGS: Two views were obtained and show total knee joint replacement in position. The components appear wel l seated. No other significant bony abnormality seen. IMPRESSION: RADIATION DOSE DELIVERED: Total DLP
== END 2021-01-09 15:23 | disposition home or self-care (01) ==
LOC: DIORS 15:22
PROVIDERS: PCP Nurse Practitioner Family; Referring Provider Nurse Practitioner Family; Visit Provider Student in an Organized Health Care Education/Training Program
DX: M25.561 Pain in right knee (principal); Z96.651 Presence of right artificial knee joint
CPT/HCPCS: 73560

== ENCOUNTER 2021-03-13 03:43 | Outpatient (CLI) | payer OTHER, SELFPAY ==
[2021-03-13 10:08] LABS: Source Nasal/Nares
[2021-03-13 12:30] LABS: COVID-19 PCR Negative (Negative)
== END 2021-03-13 03:44 | disposition home or self-care (01) ==
LOC: LBO 03:44
PROVIDERS: PCP Nurse Practitioner Family; Visit Provider Student in an Organized Health Care Education/Training Program
DX: Z20.822 Contact with and (suspected) exposure to COVID-19 (principal); Z01.818 Encounter for other preprocedural examination
CPT/HCPCS: 87635

== ENCOUNTER 2021-03-15 10:03 | Day surgery (SDC) | payer OTHER, SELFPAY ==
[2021-03-15] VITALS (8 sets, daily range): BP systolic 137–156; BP diastolic 60–93; PULSE 52–68; RESP 13–23; TEMP 36.1–36.6; O2SAT 97–100; BMI 26.8
[2021-03-15] MEDS: Celecoxib 200 MG CAP 400 MG PO (10:25)
[2021-03-15] MEDS: Acetaminophen 500 MG TAB 1000 MG PO (10:26)
[2021-03-15] MEDS: Lactated Ringers 1,000 ML 80 ML IV (10:36)
--- NOTE | 2021-03-15 11:22 | W.ANESPRE ---
General Info Date of Service Date Performed: 03/15/21 Height: 5 ft 7 in Weight: 77.7 kg Body Mass Index (BMI): 26.8 Surgical Procedure: Operation Date: 03/15/21 13:10 Proposed Procedures Side Surgeon p (R) Knee Arthroscopy w/Synovectomy Right Asaf Ervin MD Meds Allergies and Home Medications Allergies Allergy/AdvReac Type Severity Reaction Status Date / Time No Known Allergies Allergy Unverified 03/15/21 10:18 Home Medication Medication Instructions Recorded Daily Multiple 1 tab-cap PO DAILY tab-cap 05/22/16 Current Visit Medications: Current Medications Generic Name Dose Route Start Last Admin Trade Name Freq PRN Reason Stop Dose Admin Acetaminophen 1,000 mg 03/15/21 06:00 03/15/21 10:26 Acetaminophen 500 Mg Tab PO 03/15/21 18:00 1,000 mg PREOP LINO Administration Celecoxib 400 mg 03/15/21 06:00 03/15/21 10:25 Celecoxib 200 Mg Cap PO 03/15/21 18:00 400 mg PREOP LINO Administration Ringer's Solution 1,000 mls @ 80 mls/hr 03/15/21 06:00 03/15/21 10:36 IV 04/13/21 23:59 80 mls/hr INFUSION LINO Administration Cefazolin Sodium/Dextrose 2 gm in 50 mls @ 100 mls/hr 03/15/21 06:00 Ancef Duplex IVPB 04/13/21 23:59 PREOP LINO IV Miscellaneous Supplies 1 each 03/15/21 06:00 Iv Access IV 04/13/21 23:59 DIRECTED LINO Sodium Chloride 0 ml 03/15/21 06:00 Normal Saline Flush 10 Ml Syr IV 04/13/21 23:59 PRN PRN Sodium Chloride 0 ml 03/15/21 06:00 Normal Saline 10 Ml Vial IJ 04/13/21 23:59 DIRECTED PRN Sterile Water 0 ml 03/15/21 06:00 Water,Injection,Sterile 10 Ml Vial IJ 04/13/21 23:59 DIRECTED PRN PFSH Active Problems Active Problems: Problem Status Onset Code Painful total knee replacement, right T84.84XA, Z96.651 History of total right knee replacement 02/16/20 Z96.651 Colorectal polyps K63.5 Dyspareunia Hypothyroidism (acquired) E03.9 Menopausal symptoms 02/04/17 N95.1 Intramural leiomyoma of uterus 06/07/16 D25.1 Surgical History Surgical History History of section x2 History of endometrial ablation Hx of anterior cruciate ligament surgery R replacement Tobacco Smoking/Tobacco Use Status: Never Second hand exposure: No Alcohol Alcohol Intake: current Alcohol intake frequency: 0-2 drinks per day Alcohol type: beer and wine Substance Use Substance use: Never Substance use type: does not use Prental History History 2 Para Hx # Term Pregnancies 2 Multiple births Hx # Pregnancies Ectopic pregnancies AB induced Hx Number of Living Children AB spontaneous Vital Signs and Lab Results Vital Signs Most Recent Vital Signs in EMR: Most Recent Vital Signs Temp Pulse Resp BP Pulse Ox 36.1 C L 68 16 143/60 H 100 03/15/21 10:14 03/15/21 10:14 03/15/21 10:14 03/15/21 10:14 03/15/21 10:14 Lab Results Blood Type / Crossmatch: No Data to Display Complete Blood Count: No Data to Display Complete Metabolic Panel: No Data to Display Liver Function Panel: No Data to Display Coagulation Panel: No Data to Display Cardiac Panel: No Data to Display Arterial Blood Gas: No Data to Display Venous Blood Gas: No Data to Display Pancreas Panel: No Data to Display Thyroid Panel: No Data to Display Infectious Disease: Coronavirus (COVID-19)(PCR) Negative (Negative) 03/13/21 09:30 03/13/21 Coronavirus 2019 Source Nasal/Nares 03/13/21 09:30 03/13/21 Blood Cultures: No Data to Display Toxicology Panel: No Data to Display Panel: No Data to Display Anesthesia Assessment and Plan Anesthesia History Personal History: No History of Anesthesia Complications Family History: No Family History of Anesthesia Complications Exercise Tolerance Exercise Tolerance: Metabolic Equivalents>4 Pertinent Negatives Pertinent Negatives: No Symptoms of GERD, No Major Cardiovascular Symptoms or Complaints, No Major Pulmonary Symptoms or Complaints and No History of CVA/TIA Cardiac & Pulmonary Exam Cardiac Exam: Normal S1/S2 Heart Sounds Pulmonary Exam: Clear Bilateral Breath Sounds Implantable Cardiac Device Does patient have a Pacemaker or an ICD?: No Airway Exam Known Difficult Airway: No Mallampati Class: 1 Mouth Opening: Normal (> 3cm) Thyromental Distance: Greater than 3 cm Neck Range of Motion: Full ROM Neck Circumference: Normal Teeth Condition: Normal Dentition ASA Classification ASA Score: ASA 2 Emergency Case?: No NPO Status NPO Status: NPO Clears >2 hours, Solids >8 hours Status Status: Not Relevant due to Medical History Anesthesia Plan Resuscitation Status: Full Code Anesthesia Technique: General Anesthesia Airway Planned: LMA Monitors Used: Standard Monitors
--- NOTE | 2021-03-15 12:16 | PDOC.DSDIS_ITS ---
Discharge Plan Disposition Patient Disposition: HOME Condition: Good Discharge Details Reason For Visit: R knee arthroscopy Attending Provider: Asaf Ervin Primary Care Provider: Ashlee Bruner Home Meds and New Rx's Prescriptions: New hydrocodone-acetaminophen 5-325 mg tablet 1 tab PO Q6H PRN (Reason: pain) Qty: 6 RF: 0 acetaminophen 500 mg tablet 1,000 mg PO TID Qty: 90 RF: 0 ibuprofen 600 mg tablet 600 mg PO TID PRN (Reason: pain) Qty: 90 RF: 0 Continued Daily Multiple 1 EACH tablet 1 tab-cap PO DAILY RF: 0 Discharge Instructions Stand Alone Forms: [facility]th[facility] Referrals: Asaf Ervin MD [ [facility] STAFF PHYSICIAN] - Equipment/Supplies: Partial Weight Bearing Crutches Activity:: Activity as Tolerated Remove Dressings/Wound Care:: 72 hours Shower/Bathe:: 72 hours Diet:: As Tolerated Discharge Orders Discharge Orders: Discharge Order (Routine); Ordered 03/15/21 Ordered By: Regino Banks DS: Diagnosis Discharge Diagnosis (1) Painful total knee replacement, right: Status: Acute
[2021-03-15] MEDS: ceFAZolin 2 GM/50 ML BAG IVPB (12:33)
[2021-03-15] MEDS: Bupivacaine 0.5% Pres-Free 30 ML VIAL (12:59)
--- NOTE | 2021-03-15 14:09 | W.ANESPOSTOP ---
Postoperative Evaluation Date, Time and Location Date Performed: 03/15/21 Time Performed: 14:09 Patient Location: Day Surgery Unit Vital Signs Most Recent Imported Vital Signs: Most Recent Vital Signs Temp Pulse Resp BP Pulse Ox 36.6 C 54 L 23 156/80 H 99 03/15/21 13:59 03/15/21 13:59 03/15/21 13:59 03/15/21 13:59 03/15/21 13:59 Pain Score Most Recent Pain Score: Most Recent Pain Score Pain Level 5 03/15/21 13:59 Assessment Mental Status: Awake (Alert & Oriented to Patient Baseline) Airway and Respiratory Function: Patent airway with normal (patient baseline) respiratory exam Cardiovascular Function: Hemodynamically Stable Hydration Status: Adequately Hydrated Nausea & Vomiting: No Nausea or Vomiting Pain: Pt. Denies Any Pain Peripheral Nerve Block: Regional nerve block not resolved at time of post operative discharge
--- NOTE | 2021-03-15 14:55 | W.ANESPOSTOP ---
Postoperative Evaluation Date, Time and Location Date Performed: 03/15/21 Time Performed: 14:55 Patient Location: Day Surgery Unit Vital Signs Most Recent Imported Vital Signs: Most Recent Vital Signs Temp Pulse Resp BP Pulse Ox 36.6 C 52 L 18 156/93 H 100 03/15/21 14:13 03/15/21 14:13 03/15/21 14:13 03/15/21 14:13 03/15/21 14:13 Most Recent Vital Signs Temp Pulse Resp BP Pulse Ox 36.6 C 54 L 23 156/80 H 99 03/15/21 13:59 03/15/21 13:59 03/15/21 13:59 03/15/21 13:59 03/15/21 13:59 Pain Score Most Recent Pain Score: Most Recent Pain Score Pain Level 5 03/15/21 14:13 Assessment Mental Status: Awake (Alert & Oriented to Patient Baseline) Airway and Respiratory Function: Patent airway with normal (patient baseline) respiratory exam Cardiovascular Function: Hemodynamically Stable Hydration Status: Adequately Hydrated Nausea & Vomiting: No Nausea or Vomiting Pain: Pt. Denies Any Pain Peripheral Nerve Block: Patient did not receive a nerve block
--- NOTE | 2021-03-15 20:35 | W.PM.OP ---
Date of service: 03/15/21 Time of Service: 14:35 Operative Note Operative Note DATE OF PROCEDURE: 03/15/21 PRE-OP DIAGNOSIS: Arthrofibrosis and Pain of Right Knee Replacement POST-OP DIAGNOSIS: same PROCEDURE: Arthroscopic Synovectomy of suprapatellar and lateral compartments - right knee SURGEON: Asaf Ervin ANESTHESIA TYPE: General LMA/ETT Refer to Anesthesia Record ESTIMATED BLOOD LOSS: 0 PATHOLOGY: none sent TOURNIQUET TIME: 0 COMPLICATIONS: None Patient was transported to: PACU Patient's condition: stable Indications: I have seen Masha in clinic for symptoms of crepitus and arthrofibrosis and pain of the knee following knee replacement surgery. This was based on exam findings. Nonoperative measures were exhausted but disability due to lack of motion persisted. I discussed knee arthroscopy with synovectomy with maniuplation with the patient. I reviewed the risks of the procedure to include, but not limited to, bleeding, infection, pain, continued stiffness, recurrence, blood clot. Despite these risks, the patient elected to proceed. Findings: There is dense scar tissue seen in the suprapatellar pouch. This was resected off of the femur. There is also notable frayed tissue and dense scarring seen around the lateral aspect the implant especially the posterior lateral corner. This was resected both with and electrocautery and with shaver. Procedure Description: Masha was greeted in the preoperative holding area where the correct side was identified and marked. The consent was reviewed with the patient and signed. The history and physical was updated. All questions were answered. She was taken back to the operating room. The patient was placed into the supine position on the operating room table. All bony prominences were well padded. Prophylactic antibiotics in the form of Cefazolin were administered. The right leg was then prepped with Chloraprep and draped in a standard fashion with stockinette and extremity drape. A timeout to confirm correct identity, side and site, procedure, allergies, anesthesia, and medical concerns was performed. The leg was placed into a pneumatic leg richey, [email or web address]. A standard lateral portal was made at the lateral border of the patella tendon in line with the inferior pole of the patella, soft spot. The skin and deep tissue was incised sharply and the blunt trochar was inserted atraumatically. At this point had visualization of the femoral component. A superolateral portal was then established with spinal needle localization just superior and lateral to the patella. A knife was taken down through the skin and soft tissue to enter the knee joint. Starting in the superior compartment above the femoral component and anterior to the femur I released all scarring between the anterior femoral synovium and the overlying extensor mechanism. This was taken through all of any noticeable scar tissue until the superior patellar pouch was fully released and mobile. This resection was carried out mostly with electrocautery as well as shaver. Once this was released fully from lateral to medial superiorly I then continue working down the lateral gutter. All scar tissue in the lateral gutter was released so there is normal space and movement between the capsular tissues and the edge of the femoral component and femur. This was taken down through the lateral gutter such that I was able to identify the polyethylene to its posterior corner. Once again, all scar tissue in this area was resected so the polyethylene was easily visible and there is no interposed tissue in the back or the polyethylene was identified. This tissue was quite dense and fibrillated. Any remnant scar tissue from around the patella was then removed with a shaver and electrocautery. The arthroscope was brought back into the suprapatellar pouch and the leg was in full extension. The knee was thoroughly irrigated with the arthroscopic fluid on high flow and pressure. Inflow was stopped and excess fluid was removed. The wounds were closed with 4-0 Nylon. 0.25% ropivacaine was injected around the portal sites and into the knee. The wounds were dressed with Xeroform, 4x4 gauze, ABD pad, Kerlix and an CAYLA wrap. A cryo-cuff was applied. The patient tolerated the procedure well and was returned to the Same Day Surgery area in a stable condition suffering no known complication..
== END 2021-03-15 15:37 | disposition home or self-care (01) ==
PROVIDERS: PCP Nurse Practitioner Family; Visit Provider Student in an Organized Health Care Education/Training Program
PROC: (CPT 29870; principal; 2021-03-15 13:00)
DX: T84.84XA Pain due to internal orthopedic prosthetic devices, implants and grafts, initial encounter (principal)
CPT/HCPCS: 29876; J0131; J0690; J1100; J1885; J2250; J2405

== ENCOUNTER 2021-03-28 02:03 | Outpatient (CLI) | payer OTHER, SELFPAY ==
--- NOTE | 2021-03-28 11:39 | DI.MAMMO_ITS ---
Exam(s) MAMMO SCREENING EXAM: MAMMO SCREENING CLINICAL HISTORY: SCREENING, Z12.39 TECHNIQUE: Mammograms were interpreted according to the usual protocol including computer analysis w [facility] CAD system, tomosynthesis and C-view imaging. COMPARISON: FINDINGS: The breasts are heterogeneously dense. No dominant mass or clumped microcalcification is identified in either breast. The current examination is compared with previous examinations including July 2019 and there has been no gross interval change in appearance in comparison with the prior studies. IMPRESSION: No specific evidence of malignancy at this time. Routine screening examinations are suggested at yea rly intervals in this age group according to the ACS ACR guidelines. BI-RADS Category 1 - Negative Breast Density - Category C - Heterogeneously dense
== END 2021-03-28 02:23 ==
PROVIDERS: PCP Nurse Practitioner Family; Visit Provider Nurse Practitioner Family
DX: Z12.31 Encounter for screening mammogram for malignant neoplasm of breast (principal)
CPT/HCPCS: 77063; 77067

== ENCOUNTER 2021-05-29 10:20 | Outpatient (REF) | payer OTHER, SELFPAY ==
[2021-05-29 15:02] LABS: Abs Immature Grans 0.01 10^3/uL (0.0-0.06); Absolute Basophil Count 0.05 10^3/uL (0.0-0.2); Absolute Eosinophil Count 0.33 10^3/uL (0.0-0.7); Absolute Lymphocyte Count 2.01 10^3/uL (1.2-3.4); Absolute Monocyte Count 0.43 10^3/uL (0.1-0.8); Absolute Neutrophil Count 2.36 10^3/uL (1.2-6.7); Eosinophils % 6.4; HCT 39.3 % (36.0-46.0); HGB 12.9 g/dL (11.2-15.7); Immature Grans % 0.2; Lymphocytes % 38.7; MCH 31.4 pg (27.0-33.0); MCHC 32.8 % (32.0-36.0); MCV 95.6 fL (80-95); MPV 10.2 fL (8.0-11.0); Monocytes % 8.3; Neutrophils % 45.4; Nucleated RBC 0 %; Platelet Count 282 10^3/uL (130-400); RBC 4.11 10^6/uL (3.93-5.22); RDW 12.7 % (11.7-14.6); RDW-SD 45.2 fL; WBC 5.19 10^3/uL (4.4-10.8)
== END 2021-05-29 10:21 | disposition home or self-care (01) ==
LOC: NCHCN 10:20
PROVIDERS: PCP Nurse Practitioner Family; Visit Provider Nurse Practitioner Family
DX: D72.819 Decreased white blood cell count, unspecified (principal)
CPT/HCPCS: 85025

== ENCOUNTER 2021-08-29 11:05 | Outpatient (REF) | payer OTHER, SELFPAY ==
--- NOTE | 2021-08-29 11:00 | PAPFT_PTH ---
PATIENT: Masha Munoz LOC: [facility] U#:[id number] AGE/SX: 51/F ROOM: RE08/29/[address]: Kassi Yoo : 1970 BED: DIS: 08/29/2021 SPEC #: [id number] RECD: 08/29/21 12:42 STATUS: ALTAGRACIA FULTON #: [id number] MARIA SUBM DR: Kassi Yoo DEPT: [facility] Cytology RECD BY: Caroline Antoine ENTERED: 08/29/21 12:43 SP TYPE: PAPFT OTHR DR: Ashlee Bruner Tissues: 1 - CX/ENDOCX FOR PAP SMEARS Procedures: PAP THIN PREP/UVM Screening HPV DNA PROBE Comments: [id number]
== END 2021-08-29 11:06 | disposition home or self-care (01) ==
LOC: LBN 11:05
PROVIDERS: PCP Nurse Practitioner Family; Visit Provider Obstetrics & Gynecology Gynecology
DX: Z12.4 Encounter for screening for malignant neoplasm of cervix (principal); Z11.51 Encounter for screening for human papillomavirus (HPV)
CPT/HCPCS: 88142; 87624

== ENCOUNTER 2022-02-09 14:56 | Outpatient (REF) | payer OTHER, SELFPAY ==
[2022-02-09 21:19] LABS: Abs Immature Grans 0.01 10^3/uL (0.0-0.06); Absolute Basophil Count 0.05 10^3/uL (0.0-0.2); Absolute Eosinophil Count 0.45 10^3/uL (0.0-0.7); Absolute Lymphocyte Count 1.59 10^3/uL (1.2-3.4); Absolute Neutrophil Count 2.62 10^3/uL (1.2-6.7); Eosinophils % 8.6; HCT 36.1 % (36.0-46.0); HGB 12.1 g/dL (11.2-15.7); Immature Grans % 0.2; Lymphocytes % 30.5; MCH 32.8 pg (27.0-33.0); MCHC 33.5 % (32.0-36.0); MCV 98 fL (80-95); MPV 10.5 fL (8.0-11.0); Monocytes % 9.6; Neutrophils % 50.1; Platelet Count 222 10^3/uL (130-400); RBC 3.69 10^6/uL (3.93-5.22); RDW 12.8 % (11.7-14.6); RDW-SD 46.3 fL; WBC 5.22 10^3/uL (4.4-10.8)
[2022-02-09 21:38] LABS: TSH (W/Ref FT4) 2.51 uIU/mL (0.36-3.74)
== END 2022-02-09 14:57 | disposition home or self-care (01) ==
LOC: NCHCN 14:56
PROVIDERS: PCP Nurse Practitioner Family; Visit Provider Nurse Practitioner Family
DX: Z00.00 Encounter for general adult medical examination without abnormal findings (principal); E03.9 Hypothyroidism, unspecified; D72.819 Decreased white blood cell count, unspecified; R60.0 Localized edema
CPT/HCPCS: 84443; 85025

== ENCOUNTER → 2022-03-21 01:17 | Outpatient (CLI) | payer OTHER, SELFPAY ==
--- NOTE | 2022-03-21 15:00 | DI.MAMMO_ITS ---
Exam(s) MAMMO SCREENING EXAM: MAMMO SCREENING CLINICAL HISTORY: screening. TECHNIQUE: Bilateral full field digital CC and MLO mammographic images were obtained with 3D tomosyn thesis and utilizing computer aided detection (CAD). COMPARISON: Prior mammograms were reviewed. FINDINGS: There has been no significant change in the appearance and distribution of the fibroglandular tissue. There are no new spiculated masses nor malignant appearing microcalcification groups. There is no significant architectural distortion nor skin thickening-retraction. IMPRESSION: No radiographic evidence of malignancy. BI-RADS Category 1 - Negative Breast Density - Category C - Heterogeneously dense Breast density Category C or D implies that the patient has dense breast tissue. Dense breast tissue can make it harder to find cancer on a mammogram. Dense breast tissue is also associated with an incr eased risk of breast cancer. This information about the result of the mammogram report was provided to the patient to raise their awareness. Use this report when you speak with the patient about their risks for breast cancer, which includes their family history. At that time, you may recommend additional screening tests (Ultrasoun d or MRI) as these tests may add significant information. A negative radiographic report should not delay biopsy if a dominant or clinically suspicious mass is present. Up to ten percent of cancers are not identified on mammography. A negative report may reinforce clinical impression. Adenosis and dense breasts may obscure an underlying neoplasm. False positive reports average 6 to 10%. Patient will receive a letter notifying them of these results.
== END ==
PROVIDERS: PCP Nurse Practitioner Family; Visit Provider Obstetrics & Gynecology Gynecology
DX: Z12.31 Encounter for screening mammogram for malignant neoplasm of breast (principal)
CPT/HCPCS: 77063; 77067

== ENCOUNTER 2022-10-09 03:41 | Outpatient (CLI) | payer OTHER, SELFPAY ==
[2022-10-09 13:40] LABS: TSH (W/Ref FT4) 2.98 uIU/mL (0.36-3.74)
== END 2022-10-09 03:42 | disposition home or self-care (01) ==
LOC: LBO 03:41
PROVIDERS: PCP Nurse Practitioner Family; Visit Provider Obstetrics & Gynecology Gynecology
DX: G47.00 Insomnia, unspecified (principal); R53.83 Other fatigue
CPT/HCPCS: 36415; 84443

== ENCOUNTER 2022-10-29 02:47 | Outpatient (CLI) | payer OTHER, SELFPAY ==
[2022-10-29 12:02] LABS: Folate 13.4 ng/mL (8.6-20.0); Vitamin B12 279 pg/mL (193-986)
== END 2022-10-29 02:48 | disposition home or self-care (01) ==
LOC: LBO 02:47
PROVIDERS: PCP Nurse Practitioner Family; Visit Provider Obstetrics & Gynecology Gynecology
DX: R71.8 Other abnormality of red blood cells (principal)
CPT/HCPCS: 36415; 82607; 82746

== ENCOUNTER 2023-02-15 21:06 | Outpatient (REF) | payer OTHER, SELFPAY ==
[2023-02-15 20:59] LABS: Abs Immature Grans 0.01 10^3/uL (0.0-0.06); Absolute Basophil Count 0.03 10^3/uL (0.0-0.2); Absolute Eosinophil Count 0.36 10^3/uL (0.0-0.7); Absolute Lymphocyte Count 1.59 10^3/uL (1.2-3.4); Absolute Monocyte Count 0.34 10^3/uL (0.1-0.8); Basophils % 0.7; Eosinophils % 8.3; HCT 37.7 % (36.0-46.0); HGB 12.5 g/dL (11.2-15.7); Immature Grans % 0.2; Lymphocytes % 36.7; MCH 31.9 pg (27.0-33.0); MCHC 33.2 % (32.0-36.0); MCV 96 fL (80-95); MPV 10.6 fL (8.0-11.0); Monocytes % 7.9; Neutrophils % 46.2; Platelet Count 221 10^3/uL (130-400); RBC 3.92 10^6/uL (3.93-5.22); RDW 12.9 % (11.7-14.6); RDW-SD 46.1 fL; WBC 4.33 10^3/uL (4.4-10.8)
[2023-02-15 21:11] LABS: Calculated LDL 75 mg/dL (<100); Cholesterol 156 mg/dL (<200); HDL Cholesterol 53 mg/dL (40-60); Triglyceride 142 mg/dL (<150)
== END 2023-02-15 21:07 | disposition home or self-care (01) ==
LOC: NCHCN 21:06
PROVIDERS: PCP Nurse Practitioner Family; Visit Provider Nurse Practitioner Family
DX: Z00.00 Encounter for general adult medical examination without abnormal findings (principal); D72.819 Decreased white blood cell count, unspecified; E03.9 Hypothyroidism, unspecified
CPT/HCPCS: 80061; 85025

== ENCOUNTER 2023-10-07 12:26 | Outpatient (CLI) | payer OTHER, SELFPAY ==
--- NOTE | 2023-10-07 08:45 | DI.RAD_ITS ---
Exam(s) XR KNEE LT 4V AP,LAT,HASEEB,PAT EXAM: XR KNEE LT 4V AP,LAT,HASEEB,PAT CLINICAL HISTORY: L knee pain. TECHNIQUE: 2D digital imaging was performed of the left knee. Four images were obtained. Merchant, AP, lateral and PA tunnel views were obtained. COMPARISON: CR XR STANDING ALIGNMENT from 03/03/2020 FINDINGS: BONES: No acute fracture is present. No bony destructive lesion is seen. JOINTS: The knee is normally aligned. There is a small joint effusion. No loose body. SOFT TISSUE: Normal. IMPRESSION: There is a small joint effusion. DATA REPOSITORY: RADIATION DOSE DELIVERED:
== END 2023-10-07 12:27 | disposition home or self-care (01) ==
LOC: DIORS 12:30
PROVIDERS: PCP Nurse Practitioner Family; Visit Provider Physician Assistant
DX: M25.562 Pain in left knee (principal); M25.462 Effusion, left knee; S89.82XA Other specified injuries of left lower leg, initial encounter
CPT/HCPCS: 73564

== ENCOUNTER → 2023-10-21 01:19 | Outpatient (CLI) | payer OTHER, SELFPAY ==
--- NOTE | 2023-10-21 07:15 | DI.MRI_ITS ---
Exam(s) MR LOWER JOINT LT WO EXAM: MR LOWER JOINT LT WO CLINICAL HISTORY: PAIN,INTERNAL DERANGEMENT LT KNEE,M23.92. TECHNIQUE: Multiplanar multisequence MRI was performed. COMPARISON: CR XR KNEE LT 4V AP,LAT,HASEEB,PAT from 10/07/2023 FINDINGS: BONES: There is marrow edema seen in the tibial spines. There does appear to be absence of the johnathon x of the medial tibial spine concerning for a fracture. JOINTS: Mild hyperintense signal seen in the lateral patellar facet suggesting chondromalacia. There is a joint effusion present. TENDONS: Extensor mechanism: Unremarkable. Medial retinaculum: Unremarkable. Lateral retinaculum: Unremarkable. Popliteus: Unremarkable. MUSCLES: Unremarkable. MENISCI: There is a focus of hyperintense signal seen in the posterior horn of the medial meniscus be st appreciated on the coronal view suspicious for tear. The lateral meniscus is unremarkable. SOFT TISSUES: There is edema seen in the soft tissues around the knee. There is a popliteal cyst pre sent. LIGAMENTS: Anterior Cruciate: The anterior cruciate ligament is intact. There is mild hyperintense signal seen at its tibial attachment site which may represent a partial tear. Posterior Cruciate: Unremarkable. Medial Collateral:There is hyperintense signal around the MCL suggesting a sprain. Lateral Collateral: Unremarkable. OTHER: IMPRESSION: 1. Tear of the posterior horn of the medial meniscus. 2. Question of a partial tear at the tibial attachment site of the anterior cruciate ligament. 3. MCL sprain. 4. Joint effusion and popliteal cyst. 5. Chondromalacia of the lateral patellar facet. DATA REPOSITORY:
== END ==
PROVIDERS: PCP Nurse Practitioner Family; Visit Provider Student in an Organized Health Care Education/Training Program
DX: M23.92 Unspecified internal derangement of left knee (principal); M23.222 Derangement of posterior horn of medial meniscus due to old tear or injury, left knee; S83.412A Sprain of medial collateral ligament of left knee, initial encounter; M25.462 Effusion, left knee; M71.22 Synovial cyst of popliteal space [Baker], left knee; M94.262 Chondromalacia, left knee
CPT/HCPCS: 73721

== ENCOUNTER 2023-11-06 09:11 | Day surgery (SDC) | payer OTHER, SELFPAY ==
[2023-11-06] VITALS (26 sets, daily range): BP systolic 141–165; BP diastolic 73–87; PULSE 50–68; RESP 10–18; TEMP 36.1–36.6; O2SAT 93–98; BMI 27.8
[2023-11-06] MEDS: Acetaminophen 500 MG TAB 1000 MG PO (09:44)
[2023-11-06] MEDS: Celecoxib 200 MG CAP 400 MG PO (09:44)
--- NOTE | 2023-11-06 10:02 | W.ANESPRE ---
General Info Date of Service Date Performed: 11/06/23 Height: 5 ft 7 in Weight: 80.7 kg Body Mass Index (BMI): 27.8 Surgical Procedure: Operation Date: 11/06/23 11:10 Proposed Procedure Side Surgeon p Knee Arthroscopy, Partial Medial Menisectomy Left Asaf Ervin MD Actual Procedure Side Surgeon p Knee Arthroscopy, Partial Medial Menisectomy Left Asaf Ervin MD Pre-Op Diagnosis Post-Op Diagnosis Internal derangement left knee Meds Allergies and Home Medications Allergies Allergy/AdvReac Type Severity Reaction Status Date / Time No Known Allergies Allergy Verified 11/06/23 09:18 Home Medication ?Medication ?Instructions ?Recorded multivitamin-ferrous 1 tab-cap PO DAILY 05/22/16 fumarate-folic acid 18 mg-400 mcg tablet (Daily Multiple) amberen PO 08/29/21 Current Visit Medications: Current Medications Generic Name Dose Route Start Last Admin Trade Name Freq PRN Reason Stop Dose Admin Acetaminophen 1,000 mg 11/06/23 06:00 11/06/23 09:44 Acetaminophen 500 Mg Tab PO 11/06/23 23:59 1,000 mg PREOP LINO Administration Celecoxib 400 mg 11/06/23 06:00 11/06/23 09:44 Celecoxib 200 Mg Cap PO 11/06/23 23:59 400 mg PREOP LINO Administration Ringer's Solution 1,000 mls @ 80 mls/hr 11/06/23 06:00 IV 11/06/23 23:59 INFUSION LINO Cefazolin Sodium/Dextrose 2 gm in 50 mls @ 100 mls/hr 11/06/23 06:00 Ancef Duplex IVPB 11/06/23 23:59 PREOP LINO Tranexamic Acid/Sodium Chloride 1,000 mg in 100 mls @ 600 mls/hr 11/06/23 06:00 IVPB 11/06/23 23:59 PREOP LINO IV Miscellaneous Supplies 1 each 11/06/23 06:00 Iv Access IV 11/06/23 23:59 DIRECTED LINO Sodium Chloride 0 ml 11/06/23 06:00 Normal Saline Flush 10 Ml Syr IV 11/06/23 23:59 PRN PRN Sodium Chloride 0 ml 11/06/23 06:00 Normal Saline 10 Ml Vial IJ 11/06/23 23:59 DIRECTED PRN Sterile Water 0 ml 11/06/23 06:00 Water,Injection,Sterile 10 Ml Vial IJ 11/06/23 23:59 DIRECTED PRN PFSH Active Problems Active Problems: Problem Status Onset Code Tear of medial meniscus of left knee Acute S83.242A Internal derangement of left knee Acute M23.92 Elevated MCV Acute R71.8 Insomnia Acute G47.00 Fatigue Acute R53.83 Varicosities of leg Acute I83.90 Colorectal polyps Acute K63.5 Dyspareunia Chronic Hypothyroidism (acquired) Chronic E03.9 Menopausal symptoms Chronic 02/04/17 N95.1 Intramural leiomyoma of uterus Chronic 06/07/16 D25.1 Surgical History Surgical History Painful total knee replacement, right S/P R knee arthroscopy/manipulation: 03/15/2021 History of total right knee replacement (02/16/20) History of endometrial ablation Hx of anterior cruciate ligament surgery R replacement History of section x2 Tobacco Smoking/Tobacco Use Status: Never Second hand exposure: No Alcohol Alcohol Intake: current Alcohol intake frequency: 0-2 drinks per day Alcohol type: beer and wine Substance Use Substance use: Never Substance use type: does not use Prental History History 2 Para Hx # Term Pregnancies 2 Multiple births Hx # Pregnancies Ectopic pregnancies AB induced Hx Number of Living Children AB spontaneous Vital Signs and Lab Results Vital Signs Most Recent Vital Signs in EMR: Most Recent Vital Signs Temp Pulse Resp BP Pulse Ox 36.6 C 68 17 142/86 H 98 11/06/23 09:20 11/06/23 09:20 11/06/23 09:20 11/06/23 09:20 11/06/23 09:20 Lab Results Blood Type / Crossmatch: No Data to Display Complete Blood Count: No Data to Display Complete Metabolic Panel: No Data to Display Liver Function Panel: No Data to Display Coagulation Panel: No Data to Display Cardiac Panel: No Data to Display Arterial Blood Gas: No Data to Display Venous Blood Gas: No Data to Display Pancreas Panel: No Data to Display Thyroid Panel: No Data to Display Infectious Disease: No Data to Display Blood Cultures: No Data to Display Toxicology Panel: No Data to Display Anesthesia Assessment and Plan Anesthesia History Personal History: No History of Anesthesia Complications Family History: No Family History of Anesthesia Complications Exercise Tolerance Exercise Tolerance: Metabolic Equivalents>4 Pertinent Negatives Pertinent Negatives: No Symptoms of GERD Cardiac & Pulmonary Exam Cardiac Exam: Normal S1/S2 Heart Sounds Pulmonary Exam: Clear Bilateral Breath Sounds Implantable Cardiac Device Does patient have a Pacemaker or an ICD?: No Airway Exam Known Difficult Airway: No Mallampati Class: 1 Mouth Opening: Normal (> 3cm) Thyromental Distance: Greater than 3 cm Neck Range of Motion: Full ROM Neck Circumference: Normal Teeth Condition: Normal Dentition ASA Classification ASA Score: ASA 2 Emergency Case?: No NPO Status NPO Status: NPO Clears >2 hours, Solids >8 hours Anesthesia Plan Resuscitation Status: Full Code Anesthesia Technique: General Anesthesia Airway Planned: LMA Monitors Used: Standard Monitors
[2023-11-06] MEDS: ceFAZolin 2 GM/50 ML BAG IVPB (11:13)
[2023-11-06] MEDS: Bupivacaine 0.5% Pres-Free 30 ML VIAL (11:23)
[2023-11-06] MEDS: TRANEXAMIC ACID/SOD. CHL. 1,000 MG/100 ML BAG 600 MG IVPB (11:23)
--- NOTE | 2023-11-06 11:43 | PDOC.DSDIS_ITS ---
Date of service: 11/06/23 Time of Service: 11:44 Discharge Plan Disposition Patient Disposition: Home Condition: Good Discharge Details Reason For Visit: L Knee Arthroscopy Attending Provider: Asaf Ervin Primary Care Provider: Ashlee Bruner Home Meds and New Rx's Prescriptions: New hydrocodone-acetaminophen 5-325 mg tablet 1 tab PO Q6H PRN (Reason: pain) Qty: 6 0RF acetaminophen 500 mg tablet 1,000 mg PO TID Qty: 90 0RF ibuprofen 600 mg tablet 600 mg PO TID PRN (Reason: pain) Qty: 90 0RF Continued amberen PO Daily Multiple 1 EACH tablet 1 tab-cap PO DAILY Discharge Instructions Stand Alone Forms: [facility] Knee Arthroscopy Referrals: Asaf Ervin MD [ [facility] STAFF PHYSICIAN] - Equipment/Supplies: Partial Weight Bearing Crutches Activity:: Activity as Tolerated Remove Dressings/Wound Care:: 72 hours Shower/Bathe:: 72 hours Diet:: As Tolerated Discharge Orders Discharge Orders: Discharge Order (Routine); Ordered 11/06/23 Ordered By: Regino Banks DS: Diagnosis Discharge Diagnosis (1) Tear of medial meniscus of left knee: Status: Acute
[2023-11-06] MEDS: Lactated Ringers 1,000 ML 80 ML IV (11:50)
[2023-11-06] MEDS: EPINEPHrine 10 MG/10 ML ML (11:58)
[2023-11-06] MEDS: fentaNYL 100 MCG/2 ML VIAL IVP (12:17)
--- NOTE | 2023-11-06 14:03 | W.ANESPOSTOP ---
Postoperative Evaluation Date, Time and Location Date Performed: 11/06/23 Time Performed: 13:47 Patient Location: Day Surgery Unit Vital Signs Most Recent Imported Vital Signs: Most Recent Vital Signs Temp Pulse Resp BP Pulse Ox 36.4 C L 60 16 156/73 H 98 11/06/23 13:17 11/06/23 13:17 11/06/23 13:17 11/06/23 13:17 11/06/23 13:17 Pain Score Most Recent Pain Score: Most Recent Pain Score Pain Level 3 11/06/23 13:17 Assessment Mental Status: Awake (Alert & Oriented to Patient Baseline) Airway and Respiratory Function: Patent airway with normal (patient baseline) respiratory exam Cardiovascular Function: Hemodynamically Stable Hydration Status: Adequately Hydrated Nausea & Vomiting: No Nausea or Vomiting Pain: Pain is tolerable per patient Peripheral Nerve Block: Patient did not receive a nerve block
--- NOTE | 2023-11-06 15:07 | W.PM.OP ---
Date of service: 11/06/23 Time of Service: 11:15 Operative Note Operative Note DATE OF PROCEDURE: 11/06/23 PRE-OP DIAGNOSIS: Left Medial Meniscus Tear POST-OP DIAGNOSIS: same PROCEDURE: Arthroscopic partial medial meniscectomy?left knee SURGEON: Asaf Ervin ANESTHESIA TYPE: General LMA/ETT Refer to Anesthesia Record ESTIMATED BLOOD LOSS: 5 PATHOLOGY: none sent COMPLICATIONS: None Patient was transported to: PACU Patient's condition: stable Indications: I have seen Masha in clinic for symptoms of a meniscus tear. This was confirmed based on MRI and exam findings. Nonoperative measures were exhausted but disability and pain persisted. I discussed knee arthroscopy with meniscal intervention with the patient. I reviewed the risks of the procedure to include, but not limited to, bleeding, infection, pain, stiffness, damage to nerves or vessels, recurrence, blood clot. Despite these risks, the patient elected to proceed. 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 The consent was reviewed with the patient and signed. The history and physical was updated. All questions were answered. She was taken back to the operating room. The patient was placed into the supine position on the operating room table. All bony prominences were well padded. Prophylactic antibiotics in the form of Cefazolin were administered. The right leg was then prepped with Chloraprep and draped in a standard fashion with stockinette and extremity drape. A timeout to confirm correct identity, side and site, procedure, allergies, anesthesia, and medical concerns was performed. The leg was placed into a pneumatic leg richey, [email or web address]. A standard lateral portal was made at the lateral border of the patella tendon in line with the inferior pole of the patella, soft spot. The skin and deep tissue was incised sharply and the blunt trochar was inserted atraumatically. A diagnostic arthroscopy was performed and the findings are listed above. The suprapatellar pouch had mild inflammatory changes. The patellofemoral articulation showed some grade II chondromalacia of the trochlea with some fraying of the patellar cartilage and some surrounding synovitis but with good tracking. The lateral gutter had no loose bodies and the medial gutter had no loose bodies. The knee was brought into some valgus stress in extension to open the medial compartment. A medial portal was made, localized by a spinal needle. The portal was created with an #11 blade through skin and capsule under direct visualization avoiding any meniscal injury. A probe was then inserted into the medial compartment. The medial compartment was fully inspected. The chondral surface of the tibia showed no significant chondromalacia and the surface of the femur showed grade I/II chondromalacia. The medial meniscus had a complex tear about the posterior horn of the medial meniscus with 2 displaced flaps, 1 medial into the gutter and the other posteriorly. After evaluation, the meniscus was debrided down to a stable base using a series of biters and arthroscopic tyrel. It was probed afterwards to confirm that the tear had been removed and the meniscus was stable. The notch was then inspected which showed an intact ACL and an intact PCL. The leg was then brought into a figure of 4 position. The lateral compartment was fully inspected with the arthroscope and a probe. The chondral surface of the lateral femur showed no significant chondromalacia. The chondral surface of the lateral tibia showed no significant chondromalacia. The lateral meniscus had no meniscal tear. The arthroscope was brought back into the suprapatellar pouch and the leg was in full extension. The knee was thoroughly irrigated with the arthroscopic fluid on high flow and pressure. Inflow was stopped and excess fluid was removed. The wounds were closed with 4-0 Nylon. They were dressed with Xeroform, 4x4 gauze, ABD pad, Kerlix and an CAYLA wrap. A cryo-cuff was applied. The patient tolerated the procedure well and was returned to the Same Day Surgery area in a stable condition suffering no known complication.
== END 2023-11-06 13:48 | disposition home or self-care (01) ==
PROVIDERS: PCP Nurse Practitioner Family; Visit Provider Student in an Organized Health Care Education/Training Program
PROC: (CPT 29870; principal; 2023-11-06 11:00)
DX: S83.242A Other tear of medial meniscus, current injury, left knee, initial encounter (principal); R53.83 Other fatigue; G47.00 Insomnia, unspecified; X50.3XXA Overexertion from repetitive movements, initial encounter
CPT/HCPCS: 29881; J0665; J0690; J1100; J2001; J2250; J2405; J2704; J3010

== ENCOUNTER 2023-12-20 00:33 | Outpatient (CLI) | payer OTHER, SELFPAY ==
--- NOTE | 2023-12-20 07:30 | DI.MAMMO_ITS ---
Exam(s) MAMMO SCREENING EXAM: MAMMO SCREENING CLINICAL HISTORY: screening TECHNIQUE: Mammograms were interpreted according to the usual protocol including computer analysis w [employer] CAD system, tomosynthesis and C-view imaging. COMPARISON: 2016 through 2021 FINDINGS: The breasts are composed of scattered fibroglandular densities, Breast Density category B. No suspicious masses or suspicious microcalcifications are seen. No skin thickening or abnormal axillary lymph nodes are seen. There has been no significant change from prior exams. IMPRESSION: BI-RADS Category 1, Negative mammogram Yearly screening mammography is recommended. Breast Density - Category B, scattered fibroglandular densities. A negative radiographic report should not delay biopsy if a dominant or clinically suspicious mass is present. Up to ten percent of cancers are not identified on mammography. A negative report may reinforce clinical impression. Adenosis and dense breasts may obscure an underlying neoplasm. False positive reports average 6 to 10%. Patient will receive a letter notifying them of these results.
== END 2023-12-20 00:53 ==
LOC: DI 00:33
PROVIDERS: PCP Nurse Practitioner Family; Visit Provider Obstetrics & Gynecology Gynecology
DX: Z12.31 Encounter for screening mammogram for malignant neoplasm of breast (principal)
CPT/HCPCS: 77063; 77067

== ENCOUNTER 2024-04-16 15:32 | Outpatient (CLI) | payer OTHER, SELFPAY ==
--- NOTE | 2024-04-16 08:15 | DI.RAD_ITS ---
Exam(s) XR KNEE LT 4V AP,LAT,HASEEB,PAT EXAM: XR KNEE LT 4V AP,LAT,HASEEB,PAT CLINICAL HISTORY: eval L knee worsening pain. TECHNIQUE: 2D digital imaging was performed. Three views. COMPARISON: CR XR KNEE LT 4V AP,LAT,HASEEB,PAT from 10/07/2023 MR MR LOWER JOINT LT WO from 10/21/2023 FINDINGS: BONES: No acute fracture is present. No bony destructive lesion is seen. JOINTS: The knee is normally aligned. A small joint effusion is seen. The joint spaces are maintain ed. No significant periarticular spurring. SOFT TISSUE: Normal. IMPRESSION: Small joint effusion. DATA REPOSITORY: RADIATION DOSE DELIVERED:
== END 2024-04-16 15:33 | disposition home or self-care (01) ==
LOC: DIORS 15:32
PROVIDERS: PCP Nurse Practitioner Family; Visit Provider Student in an Organized Health Care Education/Training Program
DX: M23.92 Unspecified internal derangement of left knee
CPT/HCPCS: 73564

== ENCOUNTER 2024-07-20 03:16 | Outpatient (CLI) | payer OTHER, SELFPAY ==
[2024-07-20 09:30] LABS: HCT 38.9 % (36.0-46.0); HGB 12.8 g/dL (11.2-15.7); MCH 31.8 pg (27.0-33.0); MCHC 32.9 % (32.0-36.0); MCV 97 fL (80-95); Platelet Count 224 10^3/uL (130-400); RBC 4.03 10^6/uL (3.93-5.22); RDW-SD 42.5 fL; WBC 5.38 10^3/uL (4.4-10.8)
[2024-07-20 09:54] LABS: Anion Gap 7.1 mmol/L (3-11); BUN 10 mg/dL (7-18); CO2 28.9 mmol/L (21.0-32.0); CREATININE 0.8 mg/dL (0.55-1.02); Calcium 9.7 mg/dL (8.5-10.1); Chloride 106 mmol/L (98-107); Estimated GFR 86.96 (mL/min/1.73m2); Glucose 95 mg/dL (74-106); Potassium 3.9 mmol/L (3.5-5.1); Sodium 142 mmol/L (136-145)
== END 2024-07-20 03:17 | disposition home or self-care (01) ==
LOC: LBO 03:16
PROVIDERS: PCP Nurse Practitioner Family; Visit Provider Student in an Organized Health Care Education/Training Program
DX: M17.12 Unilateral primary osteoarthritis, left knee (principal); Z01.818 Encounter for other preprocedural examination
CPT/HCPCS: 36415; 80048; 85027

== ENCOUNTER 2024-07-20 11:20 | Outpatient (CLI) | payer OTHER, SELFPAY ==
--- NOTE | 2024-07-20 08:00 | DI.RAD_ITS ---
Exam(s) XR STANDING ALIGNMENT EXAM: XR STANDING ALIGNMENT CLINICAL HISTORY: PRE OP L TKA. TECHNIQUE: 2D digital imaging was performed. Four images were obtained. COMPARISON: CR XR STANDING ALIGNMENT from 03/03/2020 CR XR KNEE LT 4V AP,LAT,HASEEB,PAT from 10/07/2023 CR XR KNEE LT 4V AP,LAT,HASEEB,PAT from 04/16/2024 FINDINGS: BONES: The hips are well maintained. The patient has had a right total knee arthroplasty. There is some new increased lucency seen at the lateral aspect of the tibial component of the hardware. Findi ngs of a prior right ACL repair are noted. The left knee joint spaces appears stable in fairly well maintained. The ankles are well maintained.There is less than 1 cm likely discrepancy. SOFT TISSUE: Normal. IMPRESSION: Right total knee arthroplasty. New lucency seen at the lateral interface of the tibial component of the arthroplasty. Please correlate with the patient's clinical history. Loosening cannot be exclude d. DATA REPOSITORY: RADIATION DOSE DELIVERED:
== END 2024-07-20 11:21 | disposition home or self-care (01) ==
LOC: DIORS 11:20
PROVIDERS: PCP Nurse Practitioner Family; Referring Provider Nurse Practitioner Family; Visit Provider Physician Assistant
DX: M17.12 Unilateral primary osteoarthritis, left knee (principal)
CPT/HCPCS: 77073

== ENCOUNTER 2024-08-05 08:54 | Day surgery (SDC) | payer OTHER, SELFPAY ==
[2024-08-05] VITALS (21 sets, daily range): BP systolic 88–143; BP diastolic 47–91; PULSE 48–58; RESP 10–17; TEMP 36.1–36.6; O2SAT 97–100; BMI 27.5
--- NOTE | 2024-08-05 07:23 | PDOC.DSDIS_ITS ---
Date of service: 08/05/24 Discharge Plan Disposition Patient Disposition: Home Condition: Good Discharge Details Reason For Visit: L TKR Attending Provider: Asaf Ervin Primary Care Provider: Ashlee Bruner Home Meds and New Rx's Prescriptions: New celecoxib 200 mg capsule 200 mg PO BID Qty: 60 0RF aspirin 81 mg tablet,delayed release (DR/EC) 81 mg PO BID Qty: 60 0RF tramadol 50 mg tablet 50 mg PO Q4H PRN (Reason: pain) Qty: 18 0RF acetaminophen 500 mg tablet 1,000 mg PO TID Qty: 90 3RF dexamethasone 4 mg tablet 4 mg PO DAILY Qty: 2 0RF docusate sodium 100 mg capsule 100 mg PO BID PRNQty: 28 0RF gabapentin 300 mg capsule 300 mg PO QHS Qty: 14 0RF pantoprazole 40 mg tablet,delayed release (DR/EC) 40 mg PO DAILY Qty: 14 0RF Discharge Instructions Additional Instructions: Total Knee Discharge Instructions Activity: The most important activity is to walk and to work on gentle motion (both flexion and extension). You should try to take short walks a few times a day. It is important that when resting you work on keeping the knee straight. Avoid putting a pillow behind the knee as this will encourage flexion. Work on range of motion exercises as provided by Physical Therapy. - Start outpatient physical therapy within 2 weeks. - You should wear the SHIV hose on both legs for 2 weeks. You may remove these at night. You may also use any compression sock in place of the SHIV hose. - Utilize [employer] to review exercises, see videos on exercises and obtain basic information pertaining to your surgery and your recovery. Dressing: Remove the Tani wrap by 2 days after your surgery and put on the SHIV stocking given to you from the hospital. Keep the surgical dressing (underneath the TANI wrap) in place for at least one week. After the first week it may be removed and replaced with light gauze and tape or nothing. The wound and dressing may get wet after 3 days but avoid soaking the dressing or otherwise it will need to be changed. Many people prefer covering the dressing with cling wrap (saran wrap) to minimize it from getting soaked. If it gets wet, just pat dry. If it starts to peel off then it will need to be changed. Medications: - You should take Tylenol and anti-inflammatory Celebrex as your primary pain control medications. If the Celebrex is too expensive or not covered, please call the office for another alternative (Advil/Ibuprofen or Naproxen/Aleve) - You have been prescribed a stronger pain medication Oxycodone for breakthrough pain, take as needed as prescribed. - You have also been prescribed a stomach acid reduction agent Pantoprozole to help reduce stomach acid and reflux. - You have been prescribed Gabapentin to take at night for restlessness and nerve pain. - You will be taking Aspirin 81mg twice a day for DVT prevention unless instructed otherwise. - You have also been prescribed Decadron to take to control post-operative nausea and pain. You will start this tomorrow. - If you have constipation you should take Colace or Miralax (both [id number]-[id number]). It takes most people 3-4 days to have a bowel movement. Follow-up: 2 weeks If you have any acute concerns or questions, please do not hesitate to contact the office at [phone]. You may contact Dr. Ervin with any questions after hours through the hospital at [phone] or on his cell phone at [phone]. Stand Alone Forms: Anesthesia Discharge Inst., Jelena.Nerve Block Instructions, Jordon Albert ([facility]) Referrals: Asaf Ervin MD [ [facility]] - 08/20/24 8:00 am Equipment/Supplies: Walker Activity:: Activity as Tolerated Shower/Bathe:: 72 hours Diet:: As Tolerated Discharge Orders Discharge Orders: Discharge Order (Routine); Ordered 08/05/24 Ordered By: Regino Banks DS: Diagnosis Discharge Diagnosis (1) Arthritis of left knee: Status: Resolved
[2024-08-05] MEDS: Celecoxib 200 MG CAP 400 MG PO (09:27)
[2024-08-05] MEDS: Acetaminophen 500 MG TAB 1000 MG PO (09:27)
[2024-08-05] MEDS: Gabapentin 300 MG CAP PO (09:27)
[2024-08-05] MEDS: Lactated Ringers 1,000 ML 80 ML IV (09:41)
--- NOTE | 2024-08-05 09:57 | ANES.PREOP_ITS ---
General Info Date of Service Date Performed: 08/05/24 Height: 5 ft 7 in Weight: 79.7 kg Body Mass Index (BMI): 27.5 Surgical Procedure: Operation Date: 08/05/24 10:55 Proposed Procedure Side Surgeon p Knee Total Arthroplasty, Cementless CR Left Asaf Ervin MD Meds Allergies and Home Medications Allergies Allergy/AdvReac Type Severity Reaction Status Date / Time No Known Allergies Allergy Verified 08/05/24 09:25 Home Medication ?Medication ?Instructions ?Recorded acetaminophen 500 mg tablet 1,000 mg (2 x 500 mg) PO TID #90 08/05/24 tabs aspirin 81 mg tablet,delayed 81 mg PO BID #60 tabs 08/05/24 release celecoxib 200 mg capsule 200 mg PO BID #60 caps 08/05/24 dexamethasone 4 mg tablet 4 mg PO DAILY #2 tabs 08/05/24 docusate sodium 100 mg capsule 100 mg PO BID PRN #28 caps 08/05/24 gabapentin 300 mg capsule 300 mg PO QHS #14 caps 08/05/24 tramadol 50 mg tablet 50 mg PO Q4H PRN pain #18 tabs 08/05/24 Current Visit Medications: Current Medications Generic Name Dose Route Start Last Admin Trade Name Freq PRN Reason Stop Dose Admin Acetaminophen 1,000 mg 08/05/24 06:00 08/05/24 09:27 Acetaminophen 500 Mg Tab PO 08/29/24 23:59 1,000 mg PREOP LINO Administration Acetaminophen 1,000 mg 08/05/24 07:21 Acetaminophen 500 Mg Tab PO 09/04/24 07:20 TID PRN PRN Analgesia Celecoxib 400 mg 08/05/24 06:00 08/05/24 09:27 Celecoxib 200 Mg Cap PO 08/29/24 23:59 400 mg PREOP LINO Administration Docusate Sodium 100 mg 08/05/24 07:21 Docusate Sodium 100 Mg Cap PO 09/04/24 07:20 BID PRN PRN Constipation Gabapentin 300 mg 08/05/24 06:00 08/05/24 09:27 Gabapentin 300 Mg Cap PO 08/29/24 23:59 300 mg PREOP LINO Administration Ringer's Solution 1,000 mls @ 80 mls/hr 08/05/24 06:00 08/05/24 09:41 IV 08/29/24 23:59 80 mls/hr INFUSION LINO Administration Cefazolin Sodium/Dextrose 2 gm in 50 mls @ 100 mls/hr 08/05/24 06:00 Ancef Duplex IVPB 08/29/24 23:59 PREOP LINO Tranexamic Acid/Sodium Chloride 1,000 mg in 100 mls @ 600 mls/hr 08/05/24 06:00 IVPB 08/29/24 23:59 PREOP LINO IV Miscellaneous Supplies 1 each 08/05/24 06:00 Iv Access IV 08/29/24 23:59 DIRECTED LINO Ondansetron HCl 4 mg 08/05/24 07:21 Ondansetron 4 Mg/2 Ml Vial IVP 09/04/24 07:20 Q6H PRN PRN Nausea Polyethylene Glycol 17 gm 08/05/24 07:21 Polyethylene Glycol 3350 17 Gm Packet PO 09/04/24 07:20 BID PRN PRN Constipation Sodium Chloride 0 ml 08/05/24 06:00 Normal Saline Flush 10 Ml Syr IV 08/29/24 23:59 PRN PRN Sodium Chloride 0 ml 08/05/24 06:00 Normal Saline 10 Ml Vial IJ 08/29/24 23:59 DIRECTED PRN Sterile Water 0 ml 08/05/24 06:00 Water,Injection,Sterile 10 Ml Vial IJ 08/29/24 23:59 DIRECTED PRN Tramadol HCl 50 mg 08/05/24 07:21 Tramadol 50 Mg Tab PO 09/04/24 07:20 Q4H PRN PRN Pain PFSH Active Problems Active Problems: Problem Status Onset Code History of total left knee replacement Acute 08/05/24 Z96.652 Gastrocnemius strain, left Acute S86.112A Iliotibial band syndrome, left leg Acute M76.32 Elevated MCV Acute R71.8 Insomnia Acute G47.00 Fatigue Acute R53.83 Varicosities of leg Acute I83.90 Colorectal polyps Acute K63.5 Dyspareunia Chronic Hypothyroidism (acquired) Chronic E03.9 Menopausal symptoms Chronic 02/04/17 N95.1 Intramural leiomyoma of uterus Chronic 06/07/16 D25.1 Surgical History Surgical History Status post arthroscopic partial medial meniscectomy of left knee (11/06/23) Painful total knee replacement, right S/P R knee arthroscopy/manipulation: 03/15/2021 History of total right knee replacement (02/16/20) History of endometrial ablation Hx of anterior cruciate ligament surgery R replacement History of section x2 Tobacco Smoking/Tobacco Use Status: Never Passive smoking exposure: No Second hand exposure: No Alcohol Alcohol Intake: current Alcohol intake frequency: 0-2 drinks per day Alcohol type: beer and wine Substance Use Substance use: Never Substance use type: does not use Prental History History 2 Para Hx # Term Pregnancies 2 Multiple births Hx # Pregnancies Ectopic pregnancies AB induced Hx Number of Living Children AB spontaneous Vital Signs and Lab Results Vital Signs Most Recent Vital Signs in EMR: Most Recent Vital Signs Temp Pulse Resp BP Pulse Ox 36.4 C L 57 L 16 143/91 H 100 08/05/24 09:21 08/05/24 09:21 08/05/24 09:21 08/05/24 09:21 08/05/24 09:21 Lab Results Blood Type / Crossmatch: No Data to Display Complete Blood Count: White Blood Count 5.38 10^3/uL (4.4-10.8) 07/20/24 09:07 Red Blood Count 4.03 10^6/uL (3.93-5.22) 07/20/24 09:07 Hemoglobin 12.8 g/dL (11.2-15.7) 07/20/24 09:07 Hematocrit 38.9 % (36.0-46.0) 07/20/24 09:07 Platelet Count 224 10^3/uL (130-400) 07/20/24 09:07 Complete Metabolic Panel: Sodium 142 mmol/L (136-145) 07/20/24 09:07 Potassium 3.9 mmol/L (3.5-5.1) 07/20/24 09:07 Chloride 106 mmol/L (98-107) 07/20/24 09:07 Carbon Dioxide 28.9 mmol/L (21.0-32.0) 07/20/24 09:07 BUN 10 mg/dL (7-18) 07/20/24 09:07 Creatinine 0.8 mg/dL (0.55-1.02) 07/20/24 09:07 Est GFR (CKD-EPI 2020) 86.96 (mL/min/1.73m2) 07/20/24 09:07 Calcium 9.7 mg/dL (8.5-10.1) 07/20/24 09:07 Glucose 95 mg/dL (74-106) 07/20/24 09:07 Liver Function Panel: No Data to Display Coagulation Panel: No Data to Display Cardiac Panel: No Data to Display Arterial Blood Gas: No Data to Display Venous Blood Gas: No Data to Display Pancreas Panel: No Data to Display Thyroid Panel: No Data to Display Infectious Disease: No Data to Display Blood Cultures: No Data to Display Toxicology Panel: No Data to Display Imaging and Studies Imaging and Studies Study information below may be from another EMR and interpreted by another xochilt mercado. Please see original notes in EMR for more complete details. Pulmonary Function Summary: Pulmonary Function Test PATIENT NAME: LESLIE MONROY UNIT #: [id number] ADMITTING PROVIDER: LOI MEDEL MD PRIMARY CARE PROVIDER: VIRGIE SNOWDEN APRN DATE OF ADMIT: 04/22/19 : 1970 PULMONARY FUNCTION TEST REPORT DATE OF SERVICE: April 22, 2019 REQUESTING PROVIDER: Nahed Reed M.D. Spirometry shows no evidence of obstructive airways disease. No bronchodilator testing was carried out. Lung volumes show no evidence of restriction. Diffusion capacity normal. Airways resistance normal. IMPRESSION: Normal pulmonary function study. No bronchodilator testing was carried out. Clinical correlation recommended. GINA/stephanie D/ Dictated by: LOI MEDEL MD Dict Date: 04/24/19 Dict Time: 0804 <Electronically signed by LOI MEDEL MD> Date: 05/06/19 Time: 1303 Anesthesia Assessment and Plan Anesthesia History Personal History: No History of Anesthesia Complications Family History: No Family History of Anesthesia Complications Exercise Tolerance Exercise Tolerance: Metabolic Equivalents>4 Pertinent Negatives Pertinent Negatives: No Symptoms of GERD, No Major Cardiovascular Symptoms or Complaints, No Major Pulmonary Symptoms or Complaints and No History of CVA/TIA Cardiac & Pulmonary Exam Cardiac Exam: Normal S1/S2 Heart Sounds Pulmonary Exam: Clear Bilateral Breath Sounds Implantable Cardiac Device Does patient have a Pacemaker or an ICD?: No Airway Exam Known Difficult Airway: No Mallampati Class: 3 Mouth Opening: Normal (> 3cm) Thyromental Distance: Greater than 3 cm Neck Range of Motion: Full ROM Neck Circumference: Normal Teeth Condition: Normal Dentition ASA Classification ASA Score: ASA 2 Emergency Case?: No NPO Status NPO Status: NPO Clears >2 hours, Solids >8 hours Anesthesia Plan Resuscitation Status: Full Code Anesthesia Technique: Spinal Anesthesia Airway Planned: Natural Airway Pain Management: Surgeon and patient request nerve block Monitors Used: Standard Monitors
--- NOTE | 2024-08-05 11:00 | W.PM.OP ---
Operative Note Operative Note PRE-OP DIAGNOSIS: Left Knee Osteoarthritis POST-OP DIAGNOSIS: same PROCEDURE: Left Total Knee Replacement SURGEON: Asaf Ervin SPECIAL EDUCATION PARAEDUCATOR: Bijan Banks ANESTHESIA TYPE: Spinal Refer to Anesthesia Record ESTIMATED BLOOD LOSS: 100 PATHOLOGY: none sent TOURNIQUET TIME: 0 COMPLICATIONS: None Patient was transported to: PACU Patient's condition: stable Implants: 1. Depuy Attune Cementless Cruciate Retaining Femoral Component, Size 5 2. Depuy Attune Cementless Fixed Bearing Tibial Component, Size 5 3. Depuy Attune 5x7mm CR/FB Poly 4. Depuy Attune Patellar Component, Size 35 Indications: I have seen Masha in clinic for symptoms of knee arthritis, confirmed with radiographic findings. She has exhausted nonoperative methods and was having significant limitations in daily function and desired better function and less pain. I discussed the technical details of a knee replacement. I explained the risks of the procedure to include, but not limited to, bleeding, infection, pain, stiffness, fracture, damage to nerves and vessels, damage to muscles and tendons, loosening, need for repeat procedure, blood clot and cardiopulmonary demise. Despite these risks, Masha elected to proceed. Findings: There was focal chondromalacia about the medial tibia and the distal?medial femur as well as the patella. Procedure Description: Masha was greeted in the preoperative holding area where the correct side was identified and marked. The consent was reviewed with the patient and signed. The history and physical was updated. All questions were answered. Preoperative medications were administered: Acetaminophen 1000mg, Celebrex 400mg, and Gabapentin 300mg. An adductor canal block was then administered by the anesthesia team in the [facility]. Masha was taken back to the operating room. A spinal anesthestic was then administered. The patient was placed into the supine position on the operating room table. Posts were placed for positioning during the procedure. All bony prominences were well padded. Prophylactic antibiotics in the form of Cefazolin were administered. 1g of Tranxemic Acid was given intravenously within 30 minutes of incision. The left leg was then prepped with Chloraprep and draped in a standard fashion with impervious stockinette. A second prep with Chloraprep was performed prior to application of Iodine impregnated skin protection. A timeout to confirm correct identity, side and site, procedure, allergies, anesthesia, and medical concerns was performed. With the knee in some flexion, a midline incision was made overlying the knee. Full thickness skin flaps were raised once the extensor mechanism was encountered. These were raised medially and laterally. Any bleeding was controlled with electrocautery. Once the extensor mechanism was fully exposed, a medial parapatellar arthrotomy was performed in a flexed position. All bleeding from the arthrotomy and the geniculate arteries was coagulated. A medial subperiosteal peel was performed with electrocautery to the midcoronal plane. The fat pad was removed while keeping the patellar tendon protected. The anterior distal femur synovium was removed for later visualization. The ACL and PCL were resected and the anterior horn of the lateral meniscus was transected. The knee was then flexed with the patella everted. Using a step drill, and based on preoperative templating, the femoral canal was entered. This was done with a step drill without any difficulty. The intramedullary distal femoral cut guide was inserted, set to a 6 degree valgus cut and 9mm cut thickness. The distal femoral cut guide was then held in position and pinned. With the soft tissues protected, the distal cut was performed. This was passed over a few times to ensure a planar cut. I then turned attention to the tibia. The extramedullary guide was placed onto the leg. The distal aspect was slid medial to adjust for position of center of ankle and stay in line with shaft of the tibia. Approximately 3-5 degrees of posterior slope was kept in the proximal cutting guide. The center of the guide was aligned with the PCL. The stylus was used to assess cut thickness. The medial side, most involved side, was set for a 4mm cut. This was then held in position and pinned into place with 2 additional pins and a cross pin for stability. The medial and lateral collateral ligaments were protected and the cut was performed. With this completed, it was assessed and noted to be of appropriate dimensions. The guide was removed. A spacer block was inserted and the knee was brought into extension. The 6mm spacer block provided full extension, without hyperextension and with stability of both the medial and lateral collateral ligaments was assessed. The pins from the femur and the tibia were then removed. The distal femur was then sized. The anterior stylus was placed onto the lateral ridge of the anterior femur. This indicated a size 5 femur. The external rotation of the guide was adjusted to 3 degrees to match the epicondylar axis, perpendicular to Andrzej?s line. The 4-in-1 cutting guide was the placed. The posterior medial femur cut was evaluated and appeared of good thickness. The spacer block was inserted underneath the cutting guide and stability was confirmed in 90 degrees of flexion. An diego wing was used to confirm appropriate position of the anterior cut to avoid notching. This cutting guide was ensured to be flush on the cut surface and then pinned into place with headed pins. While protecting the soft tissues, quad tendon, and collateral ligaments, the anterior and posterior cuts were performed with a saw. The central two pins were removed and the posterior and anterior chamfers were cut next. The notch-cutting guide was placed. This was pinned to lateralize the femoral component as much as possible while keeping it flush on the cut surface. This was then pinned into position. A reciprocating saw was used to make the notch cut. A rasp smoothed the cut surfaces. The medial and lateral menisci were removed. A trial femoral component was then inserted, impacted down to the cut surfaces, and the lug holes were drilled. A provisional trial tibial component was placed and the knee was brought through range of motion. The polyethylene was trialed until there was good flexion and extension with excellent stability to the medial and lateral collaterals. The patella was tracking without thumbs. A size 7mm polyethylene component provided the best range of motion and stability with less than 2mm gapping with medial and lateral stress and full extension without significant hyperextension. The tibial cut surface was fully exposed. The tibia was then sized as a 5. The tibia had been previously marked during trialing to correspond to the center of the tibial component to help with rotation. The trial was aligned to this bijan, approximately rotated to the medial 1/3rd of the tibial tubercle. The trial was pinned into place. The tibia was prepared with a reamer and a keel punch and lug holes. The knee was then brought into extension and the patella was measured as 24mm. Using the patellar clamp and cut guide, this was resected to a flat surface with at least 13mm of thickness remaining. The size 35 patella fit the best. This was oriented and then clamped into position. The lugs were drilled. The trial components were removed. The final components were opened on the back table. The periosteal and capsular tissues, especially posteriorly, around the knee were then systematically injected with a periarticular cocktail consisting of 246mg of Ropivacaine, 0.5mg of Epinephrine, 0.08mg of Clonidine, and 30mg of Ketorolac, diluted to 100cc. On the back table, with the implants opened. The cement was mixed. One batch of high viscosity cement was prepared with vacuum assistance. After the cement was ready a small amount was placed on the cut surface of the patella and the patellar button was clamped into position and held. The cementless knee components were placed. Starting with the tibial component, the tibia was subluxed anteriorly and the lug holes of the component were lined up. The tibia was then impacted with an impactor and mallet until the tibial component was in contact with the tibia. The final polyethylene component was inserted. Then, the femoral component was inserted. The lug holes were aligned and the component was impacted into position. The knee was irrigated with Surgiphor Betadine solution. This was allowed to sit in the knee for 3 minutes and then it was irrigated out with saline. After the cement had finally cured, approximately 15min, the clamp was removed from the patella and the knee was taken through range of motion. The patella was tracking with a no-thumbs technique. The capsule was then reapproximated with a No. 1 Vicryl at multiple locations. The capsule was finally closed with a No. 2 Stratafix, barbed suture. Deep tissues were then reapproximated with 0 Vicryl and 2-0 Vicryl. The skin was closed with a running 3-0 Monocryl in a subcuticular fashion. This was reinforced with skin glue. A Mepilex silver dressing was applied along with a [id number]-atpsd CAYLA wrap. A CryoCuff was applied. Masha was transferred to the hospital bed without difficulty an suffering no apparent complication. Masha has a good prognosis. Physical therapy will start today and without restrictions, weight-bearing as tolerated. Aspirin 81mg BID will be used for DVT prophylaxis. Date of Procedure: 08/05/24
[2024-08-05] MEDS: ceFAZolin 2 GM/50 ML BAG IVPB (11:22)
[2024-08-05] MEDS: TRANEXAMIC ACID/SOD. CHL. 1,000 MG/100 ML BAG 600 MG IVPB (11:31)
--- NOTE | 2024-08-05 11:36 | W.ANESNERVE ---
Nerve Block Single Injection Procedure Date and Time Date Performed: 08/05/24 Procedure Start: 10:49 Location Where Procedure Performed Procedure Location: Day Surgery Unit Reason Performed: Postoperative Analgesia Requesting Provider: Asaf Ervin Timeout Performed Timeout Performed: Yes Monitoring Used ECG, Blood Pressure and SpO2 Sterility Sterility: Hand Hygiene, Surgical Cap, Surgical Mask, Sterile Gloves and Chlorhexidine Sedation Given During Procedure Sedation Given (Indicate Dose Given): Versed IV Dose:: 2 mg and Precedex IV Dose:: 12 mcg Patient Mental Status Patient Mental Status: Sedate with meaningful communication Nerve Block 1st Nerve Block: Laterality: Left Block Type: Adductor Canal Ultrasound Image Saved?: Yes Needle / Catheter Used: 100mm SonoPlex II Local Anesthetic Bolus (Indicate Dose Given): Lidocaine used for local infiltration of skin, Injected in 3-5ml increments after negative blood aspiration, Bupivacaine 0.25% Dose:: 5 ml and Exparel Dose:: 5 ml Additives (Indicate Dose Given): Normal Saline Ultrasound: Sterile probe cover and gel used Nerve Stimulator: Supplement to Ultrasound use and No twitch or parasthesia noted < 0.5 mA Paresthesia: None Procedure Tolerated: No Complications and Patient tolerated well Procedure Outcome: Successful Performed By: Anil Castro 2nd Nerve Block: Laterality: Left Block Type: Other (Genicular Blocks) Ultrasound Image Saved?: Yes Needle / Catheter Used: 100mm SonoPlex II Local Anesthetic Bolus (Indicate Dose Given): Lidocaine used for local infiltration of skin, Injected in 3-5ml increments after negative blood aspiration, Bupivacaine 0.25% Dose:: 2.25 and Exparel Dose:: 2.25 Additives (Indicate Dose Given): Normal Saline Ultrasound: Sterile probe cover and gel used Nerve Stimulator: Supplement to Ultrasound use and No twitch or parasthesia noted < 0.5 mA Paresthesia: None Procedure Tolerated: No Complications and Patient tolerated well Procedure Outcome: Successful Performed By: Anil Castro
[2024-08-05] MEDS: Tranexamic Acid 650 MG TAB 1300 MG PO (14:29)
[2024-08-05] MEDS: traMADol 50 MG TAB PO (14:29)
--- NOTE | 2024-08-05 14:48 | W.ANESPOSTOP ---
Postoperative Evaluation Date, Time and Location Date Performed: 08/05/24 Time Performed: 13:15 Patient Location: PACU Vital Signs Most Recent Imported Vital Signs: Most Recent Vital Signs Temp Pulse Resp BP Pulse Ox 36.6 C 51 L 16 120/73 100 08/05/24 14:05 08/05/24 14:05 08/05/24 14:05 08/05/24 14:05 08/05/24 14:05 Pain Score Most Recent Pain Score: Most Recent Pain Score Pain Level 1 08/05/24 14:05 Assessment Mental Status: Awake (Alert & Oriented to Patient Baseline) Airway and Respiratory Function: Patent airway with normal (patient baseline) respiratory exam Cardiovascular Function: Hemodynamically Stable Hydration Status: Adequately Hydrated Nausea & Vomiting: No Nausea or Vomiting Pain: Pt. Denies Any Pain Peripheral Nerve Block: Regional nerve block not resolved at time of post operative discharge
--- NOTE | 2024-08-05 15:15 | IN_ITS ---
PT Notes Visit Reasons: L TKR Physical Therapy Day Surgery Initial Evaluation Date: 08/05/24 Referring Doctor: MAR Caro; Dr Ervin PT Orders: PT CONSULT: s/p Ortho surgery Precautions: WBAT LLE Patient Profile/Admitting Diagnosis: Pt is a 53 yo female presenting s/p elective Left TKA with spinal anesthesia and nerve block by Dr Ervin on 08/05/24. Post op uncomplicated. PMHX: Arthritis of left knee (Acute) Gastrocnemius strain, left (Acute) Iliotibial band syndrome, left leg (Acute) Status post arthroscopic partial medial meniscectomy of left knee (Acute 11/06/23) Tear of medial meniscus of left knee (Acute) Internal derangement of left knee (Acute) Elevated MCV (Acute) Insomnia (Acute) Fatigue (Acute) Varicosities of leg (Acute) Colorectal polyps (Acute) Dyspareunia (Chronic) Recommended [id number] vaginal moisturizersHypothyroidism (acquired) (Chronic) Menopausal symptoms (Chronic 02/04/17) Occasional Vasomotor symptoms. Vaginal dryness treated with [id number]-dofvmab vaginal lubricant.Intramural leiomyoma of uterus (Chronic 06/07/16) x4; largest [id number] Surgical History Painful total knee replacement, right S/P R knee arthroscopy/manipulation: 03/15/2021History of total right knee replacement (02/16/20) History of endometrial ablation Hx of anterior cruciate ligament surgery R replacementHistory of section x2 Social History/Home Situation: Pt resides in single family home with 4STE with 1 rail Left. Pt independent with ambulation, ADL, meal prep, shopping, driving. 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 She stands on concrete floor for her shift. Equipment Owned/DME: crutches Subjective: Pt reports she has used crutches in the past and feels very comfortable with them. Objective: General Observation: female upright in stretcher. ice to left knee, present. Mental Status: A+Ox4, cooperative motivated to walk. Pt apprehensive on bending her knee. agreeable to participate in assessment Pain: 3/10 left knee ROM: [] Right Upper Extremity: WNL Left Upper Extremity: WNL Right Lower Extremity: WNL Left Lower Extremity: WNL except knee 5-90 degrees Strength: Right Upper Extremity: 5/5 Left Upper Extremity: 5/5 Right Lower Extremity: 5/5 Left Lower Extremity: Hip flexion: 3- /5; hip abduction: 3- /5; hip extension:3- /5; ankle DF: 3+ /5 ; ankle PF: 3 /5. Pt demonstrates quad set with tactile cue and visual cue for quad activation. Pt demonstrates quad lag with SLR. after instruction to perform quad set then SLR pt able to hold for 2/5 reps without lag. Sensation: intact Bed Mobility/Transfers: Supine to sit supervision Sit to stand SBA with Crutches Stand to sit SBA with crutches Bed to chair SBA with crutches Gait: ambulate with B axillary crutches SBA 150 feet Pt requires cues for heelstrike then quad activation. Pt preference for exessive WB through BUE and holding knee in slight knee flexion through mid stance on Left Stairs: 3 4 steps? and 2 6 steps with B crutches SBA step to pattern Balance: Static Sitting: Normal Dynamic Sitting: Good Static Standing: Good Dynamic Standing: Fair + Special Tests: Mobility Limitations Standardized Measure [facility] AM-PAC 6 clicks Basic Mobility Inpatient Short Form: Raw Score:23 CMS Score: 11.20% Informed Consent/Education: Patient instructed in purpose of PT consult. Treatment: 57556 Packet containing TKA exercise protocol has been given to patient. Education and training on initial set of exercises that can be done at home have been completed with patient.Pt performed 5 reps of all exercises. Pt additionally educated on seated heelslide with towel under foot to encourage knee flexion. Assessment: Patient is a 53 yo female who presents with clinical signs and symptoms consistent with current/admitting diagnoses that have resulted to mobility limitations, gait instability, generalized weakness, and impairment of motor control as demonstrated by the following impairment level findings: 1. Decreased strength to left knee major muscle groups 2. Impaired standing balance 3. Limitation of joint range of motion in left knee 4. Impaired functional activity tolerance 5. pain in left knee Impairments are contributing to the following functional limitations: 1. Inability to safely ambulate without assistive device 2. Increase completion time for mobility ADL performance 3. Increased fall risk 4. Difficulty performing stairs without device Patient is assessed as a low complexity based on the following: History: 53-year-old female with impairment level findings, functional limitations, and past medical history as indicated above Examination: Demonstrable impairment in strength, balance, and mobility level with underlying impairments and functional limitations as documented above Presentation: stable Decision Making: low Goals: N/A. Plan of Care/Treatment Plan: N/A. PT Evaluation and treatment DISCHARGE RECOMMENDATIONS:Home with HEP and Outpatient PT as scheduled TREATMENT CODE/TIME: [id number], [id number] Thank you for the opportunity to participate in the care of this patient. Jane Rothman PT [facility]
== END 2024-08-05 15:32 | disposition home or self-care (01) ==
LOC: SUR 08:55
PROVIDERS: PCP Nurse Practitioner Family; Visit Provider Student in an Organized Health Care Education/Training Program
PROC: (CPT 27447; principal; 2024-08-05 10:45)
DX: M17.12 Unilateral primary osteoarthritis, left knee (principal); G89.18 Other acute postprocedural pain
CPT/HCPCS: 27447; 64447; 64454; 97110; 97161; C1776; J0665; J0666; J0690; J1100; J2250; J2401; J2405; J2704; J3475

== ENCOUNTER 2024-08-20 10:01 | Outpatient (CLI) | payer OTHER, SELFPAY ==
--- NOTE | 2024-08-20 08:00 | DI.RAD_ITS ---
Exam(s) XR KNEE LT 1V XR STANDING ALIGNMENT EXAM: XR STANDING ALIGNMENT CLINICAL HISTORY: 1ST POST OP S/P L TKA. TECHNIQUE: 2D digital imaging was performed. Standing AP views were performed from the pelvis throu gh the ankles. Lateral view of the left knee. COMPARISON: CR XR KNEE LT 4V AP,LAT,HASEEB,PAT from 04/16/2024 CR XR STANDING ALIGNMENT from 07/20/2024 CR XR KNEE LT 1V from 08/20/2024 FINDINGS: BONES: No acute fracture is present. No bony destructive lesion is seen. Leg length discrepancy: No significant overall leg length discrepancy. JOINTS: Knees: A left total knee prosthesis has been placed since the previous exam. The alignment a ppears satisfactory. There has been no change in the appearance of the previously existing right kne e prosthesis. The ankle joints are unremarkable. The hip joints are unremarkable. SOFT TISSUE: Left lower extremity edema. IMPRESSION: Satisfactory alignment of bilateral knee prostheses. No significant leg length discrepancy. DATA REPOSITORY: RADIATION DOSE DELIVERED:
== END 2024-08-20 10:02 | disposition home or self-care (01) ==
LOC: DIORS 10:01
PROVIDERS: PCP Nurse Practitioner Family; Visit Provider Student in an Organized Health Care Education/Training Program
DX: Z96.652 Presence of left artificial knee joint (principal); Z47.1 Aftercare following joint replacement surgery
CPT/HCPCS: 73560; 77073

== ENCOUNTER 2024-12-17 08:58 | Outpatient (REF) | payer OTHER, SELFPAY | END 2024-12-17 08:59 | disposition home or self-care (01) | LOC: LBN 08:58 | PROVIDERS: PCP Nurse Practitioner Family; Visit Provider Obstetrics & Gynecology | DX: Z12.4 Encounter for screening for malignant neoplasm of cervix (principal) | CPT/HCPCS: 88142; 87624 ==

== ENCOUNTER 2024-12-21 07:32 | Outpatient (CLI) | payer OTHER, SELFPAY ==
--- NOTE | 2024-12-21 06:55 | DI.US_ITS ---
Exam(s) US BREAST RT LIMITED MG MAMMO DIAGNOSTIC BI EXAM: MG MAMMO DIAGNOSTIC BI CLINICAL HISTORY: Palpably denser breast tissue right lateral,rt breast mass,n63.10,r92.30. COMPARISON: US US BREAST RT LIMITED from 12/21/2024 TECHNIQUE: Craniocaudal and mediolateral oblique Full Field Digital Mammography views of both breasts with Computer Aided Diagnosis followed by Tomosynthesis and right breast ultrasound. FINDINGS: Mammography/Tomosynthesis: Masses: None seen. Architectural Distortion: None seen. Microcalcifications: No suspicious pleomorphic-type are seen. Skin Thickening/Nipple Retraction: None. Right breast US: Echotexture: Normal appearance of the glandular tissue. Shadowing: No suspicious foci. Cyst: 8 by 3 x 8 millimeter cysts in the 9 o'clock position 1 cm from the nipple. Solid lesions: None seen. Ductal dilation: None. IMPRESSION: 1. No evidence of malignancy is noted. 2. Unless there is more urgent need, follow-up screening mammography is recommended, as per [place] [employer] guidelines. BI-RADS Category 2 - Benign Findings Breast Density - Category B - There are scattered areas of fibroglandular density. Breast density Category C or D implies that the patient has dense breast tissue. Dense breast tissue can make it harder to find cancer on a mammogram. Dense breast tissue is also associated with an increased risk of breast cancer. This information about the result of the mammogram report was provided to the patient to raise their awareness. Use this report when you speak with the patient about their risks for breast cancer, which includes their family history. At that time, you may recommend additional screening tests (Ultrasound or MRI) as these tests may add significant information. A negative radiographic report should not delay biopsy if a dominant or clinically suspicious mass is present. Up to ten percent of cancers are not identified on mammography. A negative report may reinforce clinical impression. Adenosis and dense breasts may obscure an underlying neoplasm. False positive reports average 6 to 10%. Patient will receive a letter notifying them of these results.
== END 2024-12-21 07:52 ==
LOC: DI 07:33
PROVIDERS: PCP Nurse Practitioner Family; Visit Provider Obstetrics & Gynecology
DX: R92.313 Mammographic fatty tissue density, bilateral breasts (principal); N63.15 Unspecified lump in the right breast, overlapping quadrants; Z12.31 Encounter for screening mammogram for malignant neoplasm of breast
CPT/HCPCS: 76642; 77062; 77066; G0279